=== PATIENT | male | born 1975 | race Caucasian/White ===

== ENCOUNTER 2019-10-21 21:38 | Emergency (ER) | payer OTHER, SELFPAY ==
--- OUTSIDE RECORDS SUMMARY | 2019-10-21 21:42 | XMS REPORT ---
:1975 Author Organization [facility] Address [address] [place] [address] Dr. Winn [address] [place] [address] Care Team Providers Name Role Phone Unavailable Unavailable Unavailable Problems This patient has no known problems. Allergies, Adverse Reactions, Alerts This patient has no known allergies or adverse reactions. Medications This patient has no known medications.
--- OUTSIDE RECORDS SUMMARY | 2019-10-21 21:42 | XMS REPORT | Summary of Care ---
:1975 Author Organization [facility] Address [address] [place] [address] Care Team Providers Name Role Phone Ge Murillo Primary Care Provider Reason for Referral MRI/CAT Scan (STAT) Status Reason Specialty Diagnoses / Referred By Referred To Procedures Contact Contact New Request Diagnostic Diagnoses Right groin pain Jessica Gomes Radiology Procedures CT ABDOMEN PELVIS W CONTRAST L, EDITORIAL PROJECT MANAGER [address] [place] [address] Radiology Services (JR) Status Reason Specialty Diagnoses / Referred By Referred To Procedures Contact Contact New Request Diagnostic Diagnoses Right groin pain Jessica Gomes Radiology Procedures US SCROTUM AND CONTENTS L, EDITORIAL PROJECT MANAGER [address] [place] [address] Reason for Visit Reason Comments Penis/Scrotum Problem Auth/Cert Status Reason Specialty Diagnoses / Referred By Referred To Procedures Contact Contact [facility] [address] [place] [address] [place] [address] Encounter Details Date Type Department Care Team Description 09/18/2019 Emergency ADC-Emergency Jessica Gomes, Right groin pain Department EDITORIAL PROJECT MANAGER (Primary Dx) [address] [place] [address] [place] [address] [place] [address] [place] [address] [phone] Allergies No Known Allergiesdocumented as of this encounter (statuses as of 09/18/2019) Medications Medication Sig Dispensed Refills Start Date End Date Status sulfamethoxazole-trimet Take 1 Tab by 20 Tab 0 05/12/2015 Active hoprim (BACTRIM DS) mouth every 12 800-160 mg tablet (twelve) hours. documented as of this encounter (statuses as of 09/18/2019) Active Problems No known active problemsdocumented as of this encounter (statuses as of 2019) Social History Tobacco Use Types Packs/Day Years Used Date Never Assessed Sex Assigned at Date Recorded Not on file Job Start Date Occupation Industry Not on file Not on file Not on file Travel History Travel Start Travel End No recent travel history available. documented as of this encounter Last Filed Vital Signs Vital Sign Reading Time Taken Comments Blood Pressure 141/90 09/18/2019 7:10 PM BELT TENDER Pulse 98 09/18/2019 7:10 PM BELT TENDER Temperature 37 C (98.6 F) 09/18/2019 3:14 PM BELT TENDER Respiratory Rate 18 09/18/2019 7:10 PM BELT TENDER Oxygen Saturation 96% 09/18/2019 7:10 PM BELT TENDER Inhaled Oxygen Concentration - - Weight 111.1 kg (245 lb) 09/18/2019 3:14 PM BELT TENDER Height 193 cm (6' 4") 09/18/2019 3:14 PM BELT TENDER Body Mass Index 29.82 09/18/2019 3:14 PM BELT TENDER documented in this encounter Discharge Instructions Jessica Garcia APN - 09/18/2019DIAGNOSIS 1. Right groin pain NO LIFE-THREATENING FINDINGS ON TODAY'S EXAM. PROCEDURES IN THE ER TODAY: Physical exam, laboratory and imaging studies MEDICATIONS ADMINISTERED IN THE ER TODAY: none YOUR PRESCRIPTIONS AND [id number] MEDICATION RECOMMENDATIONS: none SPECIAL CARE INSTRUCTIONS: Return for any new, persistent or worsening symptoms, otherwise follow up with your primary care provider within three days. FOLLOW-UP RECOMMENDATIONS: RECOMMEND FOLLOW-UP WITH A PRIMARY CARE PROVIDER OR SPECIALIST IN 2-5 DAYS, ESPECIALLY IF NO IMPROVEMENT IN SYMPTOMS. TO FOLLOW-UP WITHIN THE [facility], TRY THESE OPTIONS (CLINIC APPOINTMENTS AVAILABLE ON [id number] BASIS): 1. SCHEDULE AN APPOINTMENT ONLINE AT WWW[facility] 2. OR CALL THE [facility] ACCESS CENTER AT OR 3. OR CALL YOUR [facility] PHYSICIAN'S OFFICE DIRECTLY IF YOU ARE ALREADY AN ESTABLISHED [facility] PATIENT. OR, YOU MAY FOLLOW-UP WITH A PROVIDER OF YOUR CHOICE, SUCH : 1. A PHYSICIAN OF YOUR CHOICE 2. [facility], . LOCATIONS IN [facility] 3. [facility], [address] [place], [place]; RETURN TO ER FOR WORSENING OF SYMPTOMS. Care of condition, home medications, and to seek immediate attention for any worsening or new symptoms such as chest pain, shortness of breath, weakness on one side of the body, generalized weakness, fever, increase in pain, nausea, vomiting, unusual bleeding, confusion, decreased level of consciousness or for any symptoms that you find concerning or worrisome. documented in this encounter Plan of Treatment Health Maintenance Due Date Last Done Comments DTaP,Tdap,and Td Vaccines (1 - 1984 Tdap) INFLUENZA VACCINE (#1) 2019 PNEUMOCOCCAL 0-64 YEARS COMBINED Aged Out No longer eligible based on SERIES patient's age to complete this topic documented as of this encounter Procedures Procedure Name Priority Date/Time Associated Comments Diagnosis CT ABDOMEN PELVIS W STAT 09/18/2019 6:04 Right groin pain Results for this CONTRAST PM BELT TENDER procedure are in the results section. US SCROTUM AND JR 09/18/2019 5:22 Right groin pain Results for this CONTENTS PM BELT TENDER procedure are in the results section. URINALYSIS STAT 09/18/2019 4:08 Right groin pain Results for this PM BELT TENDER procedure are in the results section. CBC WITH DIFFERENTIAL STAT 09/18/2019 4:07 Right groin pain Results for this PM BELT TENDER procedure are in the results section. CBC WITH DIFFERENTIAL Routine 09/18/2019 4:07 Right groin pain Results for this PM BELT TENDER procedure are in the results section. BASIC METABOLIC PANEL STAT 09/18/2019 4:07 Right groin pain Results for this (NA, K, CL, CO2, PM BELT TENDER procedure are in GLUCOSE, BUN, the results CREATININE, CA) section. NOTICE OF PRIVACY Routine 09/18/2019 3:08 PRACTICES PM BELT TENDER documented in this encounter Results CT ABDOMEN PELVIS W CONTRAST (09/18/2019 6:04 PM BELT TENDER) Specimen Impressions Performed At PACS/VR/DOSE No acute process identified in the abdomen or pelvis. Left inguinal hernia containing only fat at the time of the exam. RL: 460 AFC: [id number] Narrative Performed At Indication: Acute abdominal pain PACS/VR/DOSE COMPARISON: None TECHNIQUE: Axial images of the abdomen and pelvis are performed following administration of intravenous contrast material. Images were reformatted in the coronal and sagittal plane. CT scan was performed according to ALARA (as low as reasonably achievable) policy. FINDINGS: The lung bases are clear. The liver, gallbladder, spleen, adrenal glands and pancreas are within normal limits. The left kidney is unremarkable. There is a cortical cyst in the right kidney measuring 3.6 cm. No abdominal aortic aneurysm or dissection is appreciated. There is no free fluid in the pelvis. There is a left inguinal hernia containing only fat at the time of the exam. The patient is status post ventral hernia repair. There is no bowel obstruction, widespread diverticulosis or acute diverticulitis. The appendix is not separately identified. Bone windows through the abdomen and pelvis demonstrate no osseous destructive lesion. Procedure Note [facility], Radiant Results Inft User - 09/18/2019 6:16 PM BELT TENDER Indication: Acute abdominal pain COMPARISON: None TECHNIQUE: Axial images of the abdomen and pelvis are performed following administration of intravenous contrast material. Images were reformatted in the coronal and sagittal plane. CT scan was performed according to ALARA (as low as reasonably achievable) policy. FINDINGS: The lung bases are clear. The liver, gallbladder, spleen, adrenal glands and pancreas are within normal limits. The left kidney is unremarkable. There is a cortical cyst in the right kidney measuring 3.6 cm. No abdominal aortic aneurysm or dissection is appreciated. There is no free fluid in the pelvis. There is a left inguinal hernia containing only fat at the time of the exam. The patient is status post ventral hernia repair. There is no bowel obstruction, widespread diverticulosis or acute diverticulitis. The appendix is not separately identified. Bone windows through the abdomen and pelvis demonstrate no osseous destructive lesion. IMPRESSION No acute process identified in the abdomen or pelvis. Left inguinal hernia containing only fat at the time of the exam. RL: 460 AFC: [id number] Performing Organization Address [facility] Phone Number [facility]/VR/DOSE US SCROTUM AND CONTENTS (09/18/2019 5:22 PM BELT TENDER) Specimen Impressions Performed At [facility]/VR/Copiun Normal scrotal ultrasound. RL: 460 AFC: [id number] Narrative Performed At Ordering physician: JESSICA GOMES [facility]/VR/DOSE INDICATION: Right-sided groin pain COMPARISON: None FINDINGS: Grayscale and Doppler images of the scrotum. The right testis measures 4.4 x 1.7 x 3.6 cm and the left testis measures 2.8 x 2.5 x 1.9 cm. There is normal color flow in the testes bilaterally, with normal vascular waveforms. No asymmetric enlargement or hyperemia of either epididymis is seen to suggest epididymitis. Procedure Note [facility], Radiant Results Inft User - 09/18/2019 5:35 PM BELT TENDER Ordering physician: JESSICA GOMES INDICATION: Right-sided groin pain COMPARISON: None FINDINGS: Grayscale and Doppler images of the scrotum. The right testis measures 4.4 x 1.7 x 3.6 cm and the left testis measures 2.8 x 2.5 x 1.9 cm. There is normal color flow in the testes bilaterally, with normal vascular waveforms. No asymmetric enlargement or hyperemia of either epididymis is seen to suggest epididymitis. IMPRESSION Normal scrotal ultrasound. RL: 460 AFC: [id number] Performing Organization Address [facility] Phone Number [facility]/VR/DOSE URINALYSIS (09/18/2019 4:08 PM BELT TENDER) APPEARANCE Clear Clear [facility] COLOR Yellow Yellow [facility] PH 7.0 4.8 - 8.0 [facility] SP GRAVITY 1.026 1.003 - 1.030 [facility] GLU U QUAL Normal Normal [facility] BLOOD Negative Negative [facility] KETONES 5 mg/dL (A) Negative [facility] PROTEIN Negative Negative [facility] UROBILIN 4.0 mg/dL (A) Normal [facility] BILIRUBIN Negative Negative [facility] NITRITE Negative Negative [facility] LEUK JARRET Negative Negative [facility] RBC/HPF 3 0 - 3 HPF [facility] WBC/HPF 1 0 - 5 HPF [facility] BACTERIA Negative Negative [facility] MUCOUS Moderate (A) Negative LPF [facility] HYAL CAST 3 (H) <=2 LPF [facility] Specimen Urine - URINE, CLEAN CATCH Performing Organization Address City/State/Zipcode Phone Number [facility] CLIA: [id number], [address] [place] [address] CBC WITH DIFFERENTIAL (09/18/2019 4:07 PM BELT TENDER) WBC 7.85 4.20 - 10.70 [facility] 10*3/L [facility] RBC 4.62 4.26 - 5.52 [facility] 10*6/L [facility] HGB 14.5 12.2 - 16.4 g/dL [facility] HCT 42.3 38.4 - 49.3 % [facility] MCV 91.6 81.7 - 95.6 fL [facility] MCH 31.4 26.1 - 32.7 pg [facility] MCHC 34.3 31.2 - 35.0 g/dL [facility] RDW-SD 43.8 38.5 - 51.6 fL [facility] RDW-CV 13.1 12.1 - 15.4 % [facility] PLT 276 150 - 328 [facility] 10*3/L [facility] MPV 10.4 9.8 - 13.0 fL [facility] NRBC/100 WBC 0.0 0.0 - 10.0 /100 [facility] WBCs [facility] NRBC x10^3 <0.01 10*3/L [facility] GRAN MAT (NEUT) % 51.9 % [facility] IMM GRAN % 0.40 % [facility] LYMPH % 36.7 % [facility] MONO % 8.2 % [facility] EOS % 1.9 % [facility] BASO % 0.9 % [facility] GRAN MAT x10^3(ANC) 4.08 1.99 - 6.95 [facility] 10*3/uL HOSPITAL LABORATORY IMM GRAN x10^3 0.03 0.00 - 0.06 [facility] 10*3/uL HOSPITAL LABORATORY LYMPH x10^3 2.88 1.09 - 3.23 [facility] 10*3/uL HOSPITAL LABORATORY MONO x10^3 0.64 0.36 - 1.02 [facility] 10*3/uL HOSPITAL LABORATORY EOS x10^3 0.15 0.06 - 0.53 [facility] 10*3/uL [facility] BASO x10^3 0.07 0.01 - 0.[address]uL [facility] Specimen Blood - VENOUS Performing Organization Address City/State/Zipcode Phone Number [facility] CLIA: [id number], [address] [place] [address] BASIC METABOLIC PANEL (NA, K, CL, CO2, GLUCOSE, BUN, CREATININE, CA) (2019 4:07 PM BELT TENDER) NA 143 135 - 145 mmol/L [facility] K 4.1 3.5 - 5.0 mmol/L [facility] CL 106 98 - 108 mmol/L [facility] CO2 TOTAL 27 23 - 31 mmol/L [facility] AGAP 10 2 - 16 [facility] BUN 13 7 - 23 mg/dL [facility] GLUCOSE 100 70 - 110 mg/dL [facility] CREATININE 1.03 0.60 - 1.25 [facility] mg/dL [facility] CALCIUM 9.4 8.6 - 10.6 mg/dL [facility] eGFR Calculation 77.7 mL/min/1.73m2 [facility] (Non-) [facility] eGFR Calculation 94.2 mL/min/1.73m2 [facility] () [facility] Specimen Blood - VENOUS Narrative Performed At Association of Glomerular Filtration Rate (GFR) [facility] and Staging of Kidney Disease* + + +- + | GFR (mL/min/1.73 m2) | With Kidney Damage | Without Kidney Damage + + +- + | >90 | Stage one | Normal + + +- + | 60-89 | Stage two | Decreased GFR + + +- + | 30-59 | Stage three | Stage three + + +- + | 15-29 | Stage four | Stage four + + +- + | <15 (or dialysis) | Stage five | Stage five + + +- + *Each stage assumes the associated GFR level has been in effect for at least three months. Stages 1 to 5, with or without kidney disease, indicate chronic kidney disease. Notes: Determination of stages one and two (with eGFR >59mL/min/1.73 m2) requires estimation of kidney damage for at least three months as defined by structural or functional abnormalities of the kidney, manifested by either: Pathological abnormalities or Markers of kidney damage (including abnormalities in the composition of the blood or urine or abnormalities in imaging tests). Performing Organization Address City/State/Zipcode Phone Number [facility] CLIA: [id number], [address] [place] [address] documented in this encounter Visit Diagnoses Diagnosis Right groin pain - Primary Abdominal pain, right lower quadrant documented in this encounter Administered Medications Medication Order MAR Action Action Date Dose Rate Site iohexol (OMNIPAQUE 350 BULK-100 Given 09/18/2019 6:00 PM BELT TENDER 120 mL mL) injection 120 mL 120 mL, Intravenous, ONCE, 1 dose, 09/18/19 at 1815, Routine documented in this encounter (Work) [id number] documented as of this encounter
--- OUTSIDE RECORDS SUMMARY | 2019-10-21 21:42 | XMS REPORT | Summary of Care ---
:1975 Author Organization [facility] - [facility] Address [address] [place] [address] Care Team Providers Name Role Phone Ge Murillo Primary Care Provider Encounter Details Date Type Department Care Team Description 09/17/2019 Orders Only [facility] Doctor Unassigned, No [address] [facility] Name [place] [id number] [address] [place] [phone] Allergies No Known Allergiesdocumented as of this encounter (statuses as of 09/22/2019) Medications Medication Sig Dispensed Refills Start Date End Date Status sulfamethoxazole-trimet Take 1 Tab by 20 Tab 0 05/12/2015 Active hoprim (BACTRIM DS) mouth every 12 800-160 mg tablet (twelve) hours. documented as of this encounter (statuses as of 09/22/2019) Active Problems No known active problemsdocumented as [...] of this encounter Last Filed Vital Signs Not on filedocumented in this encounter Plan of Treatment Health Maintenance Due Date Last Done Comments DTaP,Tdap,and Td Vaccines (1 - 1984 Tdap) INFLUENZA VACCINE (#1) 2019 PNEUMOCOCCAL 0-64 YEARS COMBINED Aged Out No longer eligible based on SERIES patient's age to complete this topic documented as of this encounter Procedures Procedure Name Priority Date/Time Associated Diagnosis Comments PHYSICIAN ORDERS Routine 09/17/2019 12:01 AM DRYWALL STRIPPER HELPER documented in this encounter Results Not on filedocumented in this encounter Insurance Payer Benefit Plan / Subscriber ID Effective Dates Phone Address Type Group DOMENICA CHITO UNSPONSORED [id number] 2017-Fred[address] [place] [address] [place] [address] [employer] AETNA O [id number] 2019-Pres O ent documented as of this encounter
--- OUTSIDE RECORDS SUMMARY | 2019-10-21 21:42 | XMS REPORT | Summary of Care ---
:1975 Author Organization [facility] - [facility] Address [address] [place] [address] Care Team Providers Name Role Phone Ge Murillo Primary Care Provider Encounter Details Date Type Department Care Team Description 09/18/2019 Orders Only [facility] Doctor Unassigned, No [address] [facility] [place] [address] [address] [place] [phone] Allergies No Known Allergiesdocumented as of this [...] Procedure Name Priority Date/Time Associated Diagnosis Comments CONSENT/REFUSAL FOR Routine 09/18/2019 3:08 PM GARMENT INSPECTOR DIAGNOSIS AND TREATMENT documented in this encounter Results Not on filedocumented in this encounter Insurance Payer Benefit Plan / Subscriber ID Effective Dates Phone Address Type Group DOMENICA CHITO UNSPONS[employer]ED [id number] 2017-[address] [place] [address] [place] [address] [employer] A[employer] O [id number] 2019- O ent documented as of this encounter
--- OUTSIDE RECORDS SUMMARY | 2019-10-21 21:43 | XMS REPORT | Summary of Care ---
:1975 Author Organization [facility] Address [address] [place] [address] Care Team Providers Name Role Phone Ge Murillo Primary Care Provider Reason for Visit Reason Comments LAB WORK Auth/Cert Status Reason Specialty Diagnoses / Procedures Referred By Contact Referred To Contact Phlebotomy Diagnoses rt groin pain Adc Pob Lab Draw Procedures CBC, NO DIFFERENTIAL/PLATELET-LC Professional Office Building [address] [place] [address] , [address] [place] [address] Encounter Details Date Type Department Care Team Description 09/17/2019 Vp Of Product Visit [facility] Eliel Corbett MD [address] [place] [address] Right groin pain Professional Office Pob, Adc Lab Main (Primary Dx) Building Phlebotomy Lab Professional Office Building [address] [place] [address] , [address] [place] [address] Allergies No Known Allergiesdocumented as of this encounter (statuses as of 09/30/2019) Medications Medication Sig Dispensed Refills Start Date End Date Status sulfamethoxazole-trimet Take 1 Tab by 20 Tab 0 05/12/2015 Active hoprim (BACTRIM DS) mouth every 12 800-160 mg tablet (twelve) hours. documented as of this encounter (statuses as of 09/30/2019) Active Problems No known active problemsdocumented as [...] Procedure Name Priority Date/Time Associated Comments Diagnosis URINALYSIS Routine 09/17/2019 12:41 Right groin pain Results for this PM MASTER BAKER procedure are in the results section. CBC WITH DIFFERENTIAL Routine 09/17/2019 11:37 Right groin pain Results for this AM MASTER BAKER procedure are in the results section. CBC WITH DIFFERENTIAL Routine 09/17/2019 11:37 Right groin pain Results for this AM MA[facility] BAKER procedure are in the results section. COMP. METABOLIC PANEL Routine 09/17/2019 11:37 Right groin pain Results for this (74594) AM MASTER BAKER procedure are in the results section. documented in this encounter Results URINALYSIS (09/17/2019 12:41 PM MASTER BAKER) APPEARANCE Clear Clear [facility] COLOR Yellow Yellow [facility] PH 5.0 4.8 - 8.0 [facility] SP GRAVITY 1.019 1.003 - 1.030 [facility] GLU U QUAL Normal Normal [facility] BLOOD Negative Negative [facility] KETONES Negative Negative [facility] PROTEIN Negative Negative [facility] UROBILIN Normal Normal [facility] BILIRUBIN Negative Negative [facility] NITRITE Negative Negative [facility] LEUK JARRET Negative Negative [facility] RBC/HPF 1 0 - 3 HPF [facility] WBC/HPF 1 0 - 5 HPF [facility] BACTERIA Negative Negative [facility] MUCOUS Slight (A) Negative LPF [facility] SQ EPITH 1 HPF [facility] Specimen Urine - URINE, CLEAN CATCH Performing Organization Address City/State/Zipcode Phone Number [facility] CLIA: [id number], [address] [place] [address] CBC WITH DIFFERENTIAL (09/17/2019 11:37 AM MASTER BAKER) WBC 6.38 4.20 - 10.70 [facility] 10*3/L H[facility] RBC 4.81 4.26 - 5.52 [facility] 10*6/L [facility] HGB 14.8 12.2 - 16.4 g/dL [facility] HCT 44.2 38.4 - 49.3 % [facility] MCV 91.9 81.7 - 95.6 fL [facility] MCH 30.8 26.1 - 32.7 pg [facility] MCHC 33.5 31.2 - 35.0 g/dL [facility] RDW-SD 43.5 38.5 - 51.6 fL [facility] RDW-CV 12.9 12.1 - 15.4 % [facility] PLT 276 150 - 328 [facility] 10*3/L [facility] MPV 10.2 9.8 - 13.0 fL [facility] NRBC/100 WBC 0.0 0.0 - 10.0 /100 [facility] WBCs [facility] NRBC x10^3 <0.01 10*3/L [facility] GRAN MAT (NEUT) % 51.6 % [facility] IMM GRAN % 0.30 % [facility] LYMPH % 37.6 % [facility] MONO % 8.3 % [facility] EOS % 1.3 % [facility] BASO % 0.9 % [facility] GRAN MAT x10^3(ANC) 3.29 1.99 - 6.95 [facility] 10*3/uL [facility]OSPITAL [facility] IMM GRAN x10^3 <0.03 0.00 - 0.06 [facility] 10*3/uL [facility] LYMPH x10^3 2.40 1.09 - 3.23 [facility] 10*3/uL [facility] MONO x10^3 0.53 0.36 - 1.02 [facility] 10*3/uL [facility] EOS x10^3 0.08 0.06 - 0.53 [facility] 10*3/uL [facility] BASO x10^3 0.06 0.01 - 0.09 [facility] 10*3/uL [facility] Specimen Blood Performing Organization Address City/State/Zipcode Phone Number [facility] CLIA: [id number], [address] [place] [address] COMP. METABOLIC PANEL ([id number]) (09/17/2019 11:37 AM MASTER BAKER) NA 141 135 - 145 mmol/L [facility] K 4.3 3.5 - 5.0 mmol/L [facility] CL 105 98 - 108 mmol/L [facility] CO2 TOTAL 25 23 - 31 mmol/L [facility] AGAP 11 2 - 16 [facility] BUN 8 7 - 23 mg/dL [facility] GLUCOSE 100 70 - 110 mg/dL [facility] CREATININE 0.88 0.60 - 1.25 [facility] mg/dL [facility] TOTAL BILI 0.3 0.1 - 1.1 mg/dL [facility] CALCIUM 9.6 8.6 - 10.6 mg/dL [facility] T PROTEIN 7.4 6.3 - 8.2 g/dL [facility] ALBUMIN 4.8 3.5 - 5.0 g/dL [facility] ALK PHOS 75 34 - 122 U/L [facility] ALTv 28 5 - 50 U/L [facility] AST(SGOT) 30 13 - 40 U/L [facility] eGFR Calculation 93.2 mL/min/1.73m2 [facility] (Non-) [facility] eGFR Calculation 113.0 mL/min/1.73m2 [facility] () [facility] Specimen Blood Narrative Performed At Association of Glomerular Filtration Rate (GFR) [facility] and Staging of Kidney Disease* [...] tests). Performing Organization Address City/State/Zipcode Phone Number [facility] CLIA: [id number], [address] [place] [address] [facility] [address] documented in this encounter Visit Diagnoses Diagnosis Right groin pain - Primary Abdominal pain, right lower quadrant documented in this encounter (Work) [id number] documented as of this encounter"
[2019-10-21] MEDS ORDERED: LIDOCAINE 1% MPF 5 ML VIAL ONE (22:45)
[2019-10-21] MEDS ORDERED: HYDROCODONE/APAP 10/325 TAB ONE (22:45)
[2019-10-21] MEDS ORDERED: PROMETHAZINE 25 MG TABLET ONE (22:45)
--- NOTE | 2019-10-21 23:45 | ER ---
Nurse's Notes [facility] Name: Robbie Cano Age: 44 yrs Sex: Male : 1975 Arrival Date: 10/21/2019 Time: 21:45 Bed 19 Private MD: Diagnosis: Hemorrhoids and perianal venous thrombosis Presentation: 10/20 21:56 Chief complaint: Patient states: He has a red swollen area on his butt, his looked aj1 it up on google and it looked like perirectal abscess. Denies fever. Coronavirus screen: The patient has NOT traveled to a country currently being monitored by the CDC within the last 14 days. Ebola Screen: Patient denies travel to an Ebola-affected area in the 21 days before illness onset. Initial Sepsis Screen: Does the patient meet any 2 criteria? No. Patient's initial sepsis screen is negative. Does the patient have a suspected source of infection? Yes: Skin breakdown/wound. Risk Assessment: Do you want to hurt yourself or someone else? Patient reports no desire to harm self or others. 21:56 Method Of Arrival: Ambulatory aj 21:56 Acuity: RAMÍREZ 4 aj 10/21 00:10 Onset of symptoms is unknown. rv Triage Assessment: 10/20 21:59 General: Appears in no apparent distress. uncomfortable, Behavior is calm, cooperative, aj1 appropriate for age. Pain: Complains of pain in buttocks. Neuro: Level of Consciousness is awake, alert, obeys commands. Cardiovascular: Patient's skin is warm and dry. Respiratory: Airway is patent Respiratory effort is even, unlabored, Respiratory pattern is regular, symmetrical. Historical: - Allergies: 21:59 NKDA; aj1 - Home Meds: 21:59 None [Active]; aj1 - PMHx: 21:59 heat stroke; aj1 - PSHx: 21:59 Hernia repair; Vasectomy; aj1 - Immunization history:: Flu vaccine is not up to date. - Social history:: Smoking status: Patient/guardian denies using tobacco. Screenin:00 Abuse screen: Denies threats or abuse. Denies injuries from another. rv 23:00 Nutritional screening: No deficits noted. Tuberculosis screening: No symptoms or risk rv factors identified. Fall Risk None identified. Assessment: 23:00 General: Appears in no apparent distress. Behavior is calm, cooperative. rv 23:00 Pain: Complains of pain in rectal. Neuro: Level of Consciousness is awake, alert, obeys rv commands, Oriented to person, place, time, situation. Cardiovascular: Patient's skin is warm and dry. Respiratory: Airway is patent. GI: Reports rectal pain. Vital Signs: 21:59 BP 147 / 96; Pulse 89; Resp 18; Temp 98.5; Pulse Ox 96% on R/A; Weight 111.58 kg; aj1 Height 6 ft. 4 in. (193.04 cm); 23:00 BP 138 / 89; Pulse 86; Resp 15; Pulse Ox 99% on R/A; Pain 2/10; rv 21:59 Body Mass Index 29.94 (111.58 kg, 193.04 cm) aj1 ED Course: 21:45 Patient arrived in ED. jg7 21:58 Triage completed. aj1 21:59 Arm band placed on Patient placed in an exam room. aj1 22:07 Erick Edouard RN is Primary Nurse. rv 22:31 Gita Cox FNP-C is PHCP. snw 22:31 Cristhian Penn MD is Attending Physician. snw 23:00 Patient has correct armband on for positive identification. Pulse ox on. NIBP on. rv 10/21 00:10 No provider procedures requiring assistance completed. Patient did not have IV access rv during this emergency room visit. Administered Medications: 10/20 22:45 Drug: Isabella 10 mg-325 mg 1 tabs {Note: rass 0.} Route: PO; rv 10/21 00:11 Follow up: Response: No adverse reaction; Marked relief of symptoms; RASS: Alert and rv Calm (0) 03 22:45 Drug: Phenergan 25 mg Route: PO; rv 10/21 00:11 Follow up: Response: No adverse reaction rv 00:11 Drug: Lidocaine (1 %) 5 mg {Note: used by NP. DAILY} Route: Infiltration; rv Outcome: 10/20 23:44 Discharge ordered by . snw 10/21 00:10 Discharged to home ambulatory, with family. rv Condition: good Discharge instructions given to patient, family, Instructed on discharge instructions, follow up and referral plans. medication usage, Demonstrated understanding of instructions, follow-up care, medications, Prescriptions given X 2. 00:12 Patient left the ED. rv Signatures: Rachna Friedman RN RN aj1 Gita oCx, LEAD CUSTODIAN-C LEAD CUSTODIAN-Csnw Erick Edouard, RN RN rv Ruth Ann Burnett jg7
--- NOTE | 2019-10-21 23:45 | EDPHYS ---
Physician Documentation [facility] Name: Robbie Cano Age: 44 yrs Sex: Male : 1975 Arrival Date: 10/21/2019 Time: 21:45 Bed 19 Private MD: ED Physician Cristhian Penn HPI: 10/20 22:42 This 44 yrs old Male presents to ER via Ambulatory with complaints of Abscess.snw 22:42 The patient presents to the emergency department with pain in the rectal area, that is snw moderate. Onset: The symptoms/episode began/occurred suddenly, today. Context: the patient has no known special context relating to the rectal area complaint(s). Modifying factors: The symptoms are alleviated by nothing, The symptoms are aggravated by cough. Associate signs and symptoms: The patient has no apparent associated signs or symptoms. The patient has not experienced similar symptoms in the past. The patient has not recently seen a physician. noted hemorrhoid. Historical: - Allergies: 21:59 NKDA; aj1 - Home Meds: 21:59 None [Active]; aj1 - PMHx: 21:59 heat stroke; aj1 - PSHx: 21:59 Hernia repair; Vasectomy; aj1 - Immunization history:: Flu vaccine is not up to date. - Social history:: Smoking status: Patient/guardian denies using tobacco. ROS: 22:42 Constitutional: Negative for fever, chills, and weight loss, Eyes: Negative for injury, snw pain, redness, and discharge, ENT: Negative for injury, pain, and discharge, Neck: Negative for injury, pain, and swelling, Cardiovascular: Negative for chest pain, palpitations, and edema, Respiratory: Negative for shortness of breath, cough, wheezing, and pleuritic chest pain, Back: Negative for injury and pain, : Negative for injury, bleeding, discharge, and swelling, MS/Extremity: Negative for injury and deformity, Skin: Negative for injury, rash, and discoloration, Neuro: Negative for headache, weakness, numbness, tingling, and seizure. 22:42 Abdomen/GI: Positive for rectal pain. Exam: 22:40 Constitutional: This is a well developed, well nourished patient who is awake, alert, snw and in no acute distress. Head/Face: Normocephalic, atraumatic. Eyes: Pupils equal round and reactive to light, extra-ocular motions intact. Lids and lashes normal. Conjunctiva and sclera are non-icteric and not injected. Cornea within normal limits. Periorbital areas with no swelling, redness, or edema. ENT: Nares patent. No nasal discharge, no septal abnormalities noted. Tympanic membranes are normal and external auditory canals are clear. Oropharynx with no redness, swelling, or masses, exudates, or evidence of obstruction, uvula midline. Mucous membranes moist. Neck: Trachea midline, no thyromegaly or masses palpated, and no cervical lymphadenopathy. Supple, full range of motion without nuchal rigidity, or vertebral point tenderness. No Meningismus. Chest/axilla: Normal chest wall appearance and motion. Nontender with no deformity. No lesions are appreciated. Cardiovascular: Regular rate and rhythm with a normal S1 and S2. No gallops, murmurs, or rubs. Normal PMI, no JVD. No pulse deficits. Respiratory: Lungs have equal breath sounds bilaterally, clear to auscultation and percussion. No rales, rhonchi or wheezes noted. No increased work of breathing, no retractions or nasal flaring. Abdomen/GI: Soft, non-tender, with normal bowel sounds. No distension or tympany. No guarding or rebound. No evidence of tenderness throughout. right anal fold with hemorrhoid with small amount of dark blood Back: No spinal tenderness. No costovertebral tenderness. Full range of motion. Skin: Warm, dry with normal turgor. Normal color with no rashes, no lesions, and no evidence of cellulitis. MS/ Extremity: Pulses equal, no cyanosis. Neurovascular intact. Full, normal range of motion. Neuro: Awake and alert, GCS 15, oriented to person, place, time, and situation. Cranial nerves II-XII grossly intact. Motor strength 5/5 in all extremities. Sensory grossly intact. Cerebellar exam normal. Normal gait. Vital Signs: 21:59 BP 147 / 96; Pulse 89; Resp 18; Temp 98.5; Pulse Ox 96% on R/A; Weight 111.58 kg; aj1 Height 6 ft. 4 in. (193.04 cm); 23:00 BP 138 / 89; Pulse 86; Resp 15; Pulse Ox 99% on R/A; Pain 2/10; rv 21:59 Body Mass Index 29.94 (111.58 kg, 193.04 cm) aj1 Procedures: 23:47 I \T\ D: Incision and drainage was performed for an abscess of the right perianal area. snw Prepped with hibiclens. Anesthetized with 4 ml's 1% Lidocaine. Incised with needle. Drained moderate amount serosanguinous fluid. Dressing: sterile 4x4 gauze, the patient tolerated the procedure well. MDM: 22:31 Patient medically screened. snw 23:47 Data reviewed: vital signs, nurses notes. Data interpreted: Pulse oximetry: on room air snw is 96 %. Interpretation: normal. Counseling: I had a detailed discussion with the patient and/or guardian regarding: the historical points, exam findings, and any diagnostic results supporting the discharge/admit diagnosis, the presence of at least one elevated blood pressure reading (>120/80) during this emergency department visit, the need for outpatient follow up, to return to the emergency department if symptoms worsen or persist or if there are any questions or concerns that arise at home. Response to treatment: the patient's symptoms have markedly improved after treatment. Special discussion: I have referred the patient to see his PCP for further evaluation of high blood pressure. Based on the history and exam findings, there is no indication for further emergent testing or inpatient evaluation. I discussed with the patient/guardian the need to see the primary care provider for further evaluation of the symptoms. Administered Medications: 22:45 Drug: [place] 10 mg-325 mg 1 tabs {Note: rass 0.} Route: PO; rv 10/21 00:11 Follow up: Response: No adverse reaction; Marked relief of symptoms; RASS: Alert and rv Calm (0) 10/20 22:45 Drug: Phenergan 25 mg Route: PO; rv 10/21 00:11 Follow up: Response: No adverse reaction rv 00:11 Drug: Lidocaine (1 %) 5 mg {Note: used by TY AMBROSIO.} Route: Infiltration; rv Disposition: 07:52 Co-signature as Attending Physician, Cristhian Penn MD I agree with the assessment and harriet plan of care. Disposition: 10/21/19 23:44 Discharged to Home. Impression: Hemorrhoids and perianal venous thrombosis. - Condition is Stable. - Discharge Instructions: Hemorrhoids, How to Take a Sitz Bath, Incision and Drainage, Care After. - Prescriptions for Proctofoam HC 1- 1 % Rectal foam - apply 1 applicatorful by TOPICAL route 3 times per day; 1 Container. Augmentin 875- 125 mg Oral Tablet - take 1 tablet by ORAL route every 12 hours for 10 days; 20 tablet. - Medication Reconciliation Form, Thank You Letter, Antibiotic Education, Prescription Opioid Use form. - Follow up: Emergency Department; When: As needed; Reason: Worsening of condition. Follow up: Private Physician; When: 2 - 3 days; Reason: Recheck today's complaints, Continuance of care, Re-evaluation by your physician. Signatures: Rachna Friedman RN RN ajCristhian Mariscal MD MD cha Therrien, Shelly, MIXER SLAGMAN-C MIXER SLAGMAN-Csnw Erick Edouard, RN RN rv Corrections: (The following items were deleted from the chart) 00:12 10/20 23:44 10/21/2019 23:44 Discharged to Home. Impression: Hemorrhoids and perianal rv venous thrombosis. Condition is Stable. Forms are Medication Reconciliation Form, Thank You Letter, Antibiotic Education, Prescription Opioid Use. Follow up: Emergency Department; When: As needed; Reason: Worsening of condition. Follow up: Private Physician; When: 2 - 3 days; Reason: Recheck today's complaints, Continuance of care, Re-evaluation by your physician. snw
[2019-10-22 00:25] VITALS: TEMP 98.5
[2019-10-22 00:27] VITALS: BP 138/89; O2SAT 99
== END 2019-10-22 00:12 | disposition home or self-care (01) ==
LOC: ER 21:38
PROC: 0D9QXZZ Drainage of Anus, External Approach (ICD-10-PCS; principal; 2019-10-22)
DX: K64.5 Perianal venous thrombosis (principal); K64.9 Unspecified hemorrhoids
CPT/HCPCS: 99283; 46050; Q0169

== ENCOUNTER 2020-06-09 15:38 | Emergency (ER) | payer OTHER ==
--- OUTSIDE RECORDS SUMMARY | 2020-06-09 15:40 | XMS REPORT | Continuity of Care Document ---
:1975 Author Organization [facility] t Address [address] [place] [address] [address]. [address]. [address] [place] [address] Care Team Providers Name Role Phone Morro Arthur APN Attending Clinician Doctor Unassigned, Name Attending Clinician Unavailable Lorena Moss Main Attending Clinician Unavailable Problems This patient has no known problems. Allergies, Adverse Reactions, Alerts This patient has no known allergies or adverse reactions. Medications This patient has no known medications. Procedures This patient has no known procedures. Encounters Start End Encounter Admission Attending Care Care Encounter Source Date/Time Date/Time Type Type Clinicians Facility Department ID 2019-09-18 2019-09-18 Emergency Jerson [facility] [id number] 15:10:48 19:29:00 Dre Portillo [id number] [place] [id number] [place] [id number] 2019-09-18 2019-09-18 Orders Doctor MARTY [id number] 00:00:00 00:00:00 Only Unassigned, MAURI [id number] [place] [facility] [id number] 2019-09-17 2019-09-17 Middle Card Tender Moon Moss [facility] [id number] 11:23:09 11:38:09 Visit Lab Main [place] [id number] [place] [id number] [facility] [id number] [address] 2019-09-17 2019-09-17 Orders Doctor MARTY [id number] 00:00:00 00:00:00 Only Unassigned, MAURI [id number] [place] [facility] [id number] Results This patient has no known results.
[2020-06-09] MEDS ORDERED: LIDOCAINE 1% MPF 30 ML VIAL ONE (16:31)
[2020-06-09] MEDS ORDERED: LIDOCAINE 1% MPF 5 ML VIAL ONE (16:36)
--- NOTE | 2020-06-09 17:07 | EDPHYS ---
Physician Documentation [facility] Name: Robbie Cano Age: 45 yrs Sex: Male : 1975 Arrival Date: 06/09/2020 Time: 15:40 Bed 13 Private MD: ED Physician Yuan Paez HPI: 06/09 18:14 This 45 yrs old Male presents to ER via Ambulatory with complaints of Foreign snw Body - fish hook in chest. 18:14 The patient or guardian reports the patient has a suspected foreign body, chest. The snw reported likely foreign body is a fishhook. Onset: The symptoms/episode began/occurred suddenly, just prior to arrival. Treatment Prior to Arrival: none. The patient has experienced a previous episode. It is unknown whether or not the patient has recently seen a physician. omid rice. Historical: - Allergies: 15:54 NKDA; jd3 - PMHx: 15:54 heat stroke; jd3 - PSHx: 15:54 Hernia repair; Vasectomy; jd3 - Immunization history:: Adult Immunizations up to date, Last tetanus immunization: unknown. - Social history:: Smoking status: Patient denies any tobacco usage or history of. ROS: 18:13 Constitutional: Negative for fever, chills, and weight loss, Eyes: Negative for injury, snw pain, redness, and discharge, ENT: Negative for injury, pain, and discharge, Neck: Negative for injury, pain, and swelling, Cardiovascular: Negative for chest pain, palpitations, and edema, Respiratory: Negative for shortness of breath, cough, wheezing, and pleuritic chest pain, Abdomen/GI: Negative for abdominal pain, nausea, vomiting, diarrhea, and constipation, Back: Negative for injury and pain, : Negative for injury, bleeding, discharge, and swelling, MS/Extremity: Negative for injury and deformity, Neuro: Negative for headache, weakness, numbness, tingling, and seizure, Psych: Negative for depression, anxiety, suicide ideation, homicidal ideation, and hallucinations. 18:13 Skin: Positive for foreign body to chest - fish hook. Exam: 18:13 Constitutional: This is a well developed, well nourished patient who is awake, alert, snw and in no acute distress. Head/Face: Normocephalic, atraumatic. Eyes: Pupils equal round and reactive to light, extra-ocular motions intact. Lids and lashes normal. Conjunctiva and sclera are non-icteric and not injected. Cornea within normal limits. Periorbital areas with no swelling, redness, or edema. ENT: Nares patent. No nasal discharge, no septal abnormalities noted. Tympanic membranes are normal and external auditory canals are clear. Oropharynx with no redness, swelling, or masses, exudates, or evidence of obstruction, uvula midline. Mucous membranes moist. Neck: Trachea midline, no thyromegaly or masses palpated, and no cervical lymphadenopathy. Supple, full range of motion without nuchal rigidity, or vertebral point tenderness. No Meningismus. Chest/axilla: Normal chest wall appearance and motion. Nontender with no deformity. No lesions are appreciated. Cardiovascular: Regular rate and rhythm with a normal S1 and S2. No gallops, murmurs, or rubs. Normal PMI, no JVD. No pulse deficits. Respiratory: Lungs have equal breath sounds bilaterally, clear to auscultation and percussion. No rales, rhonchi or wheezes noted. No increased work of breathing, no retractions or nasal flaring. Abdomen/GI: Soft, non-tender, with normal bowel sounds. No distension or tympany. No guarding or rebound. No evidence of tenderness throughout. Back: No spinal tenderness. No costovertebral tenderness. Full range of motion. MS/ Extremity: Pulses equal, no cyanosis. Neurovascular intact. Full, normal range of motion. Neuro: Awake and alert, GCS 15, oriented to person, place, time, and situation. Cranial nerves II-XII grossly intact. Motor strength 5/5 in all extremities. Sensory grossly intact. Cerebellar exam normal. Normal gait. Psych: Awake, alert, with orientation to person, place and time. Behavior, mood, and affect are within normal limits. 18:13 Skin: Appearance: normal except for affected area, foreign body to left mid chest area. Vital Signs: 15:54 BP 132 / 80; Pulse 110; Resp 17 S; Temp 97.9(O); Pulse Ox 95% on R/A; Weight 111.58 kg jd3 (R); Height 6 ft. 4 in. (193.04 cm) (R); Pain 6/10; 17:18 BP 136 / 74; Pulse 92; Resp 17 S; Pulse Ox 100% on R/A; ca1 15:54 Body Mass Index 29.94 (111.58 kg, 193.04 cm) jd3 Procedures: 17:04 Foreign Body Removal: a fishhook, from the right mid chest wall, by needle, normal snw saline irrigation, The patient tolerated the removal well. 18:15 Foreign Body Removal: superior puncture wound appears "tattooed" with black coloration snw from t-shirt. MDM: 16:20 Patient medically screened. snw 17:09 Data reviewed: vital signs, nurses notes. Counseling: I had a detailed discussion with snw the patient and/or guardian regarding: the historical points, exam findings, and any diagnostic results supporting the discharge/admit diagnosis, the presence of at least one elevated blood pressure reading (>120/80) during this emergency department visit, the need for outpatient follow up, for definitive care, to return to the emergency department if symptoms worsen or persist or if there are any questions or concerns that arise at home. Special discussion: Based on the history and exam findings, there is no indication for further emergent testing or inpatient evaluation. I discussed with the patient/guardian the need to see the primary care provider for further evaluation of the symptoms. 06/09 17:09 Order name: Wound dressing; Complete Time: 17:10 snw Administered Medications: 17:10 Drug: Lidocaine (1 %) 1 vials Volume: 20 ml; Route: Infiltration; ca1 17:12 Drug: Doxycycline 100 mg Route: PO; ca1 17:31 Follow up: Response: No adverse reaction ca1 17:13 Drug: [place] 5 mg-325 mg 1 tabs {Note: rass 0.} Route: PO; ca1 17:31 Follow up: Response: No adverse reaction; Pain is decreased; RASS: Alert and Calm (0) ca1 17:15 Drug: Tetanus-Diphtheria Toxoid Adult 0.5 ml {Drill Rig Operator Helper: VetDC. Exp: ca1 10/22/2021. Lot #: [id number]. } Route: IM; Site: right deltoid; 17:31 Follow up: Response: No adverse reaction ca1 Disposition: 06/09/20 17:06 Discharged to Home. Impression: Puncture wound with foreign body of front wall of thorax without penetration into thoracic cavity. - Condition is Stable. - Discharge Instructions: Puncture Wound, VIS, Tetanus, Diphtheria (Td) - CDC, Foreign Body. - Prescriptions for Doxycycline Hyclate 100 mg Oral Tablet - take 1 tablet by ORAL route every 12 hours; 20 tablet. - Medication Reconciliation Form, Thank You Letter, Antibiotic Education, Prescription Opioid Use form. - Follow up: Emergency Department; When: As needed; Reason: Worsening of condition. Follow up: Private Physician; When: 5 - 6 days; Reason: Recheck today's complaints, Continuance of care, Re-evaluation by your physician. Addendum: 06/11/2020 14:34 Co-signature as Attending Physician, Yuan Paez MD I agree with the assessment and k dr plan of care. Signatures: Yuan Paez MD MD kdr Waters, Shelly, PILLO-C RECREATION THERAPY AIDES TEACHER-Jose Luis Melton, RN RN jd3 Carmita Pineda RN RN ca1 Corrections: (The following items were deleted from the chart) 06/09 17:31 17:06 06/09/2020 17:06 Discharged to Home. Impression: Puncture wound with foreign body ca1 of front wall of thorax without penetration into thoracic cavity. Condition is Stable. Forms are Medication Reconciliation Form, Thank You Letter, Antibiotic Education, Prescription Opioid Use. Follow up: Emergency Department; When: As needed; Reason: Worsening of condition. Follow up: Private Physician; When: 5 - 6 days; Reason: Recheck today's complaints, Continuance of care, Re-evaluation by your physician. snw
--- NOTE | 2020-06-09 17:07 | ER ---
Nurse's Notes [facility] Name: Robbie Cano Age: 45 yrs Sex: Male : 1975 Arrival Date: 06/09/2020 Time: 15:40 Bed 13 Private MD: Diagnosis: Puncture wound with foreign body of front wall of thorax without penetration into thoracic cavity Presentation: 06/09 15:52 Chief complaint: Patient states: "I got a hook stuck in my chest.". Coronavirus screen: jd3 At this time, the client does not indicate any symptoms associated with coronavirus-19. Ebola Screen: Patient negative for fever greater than or equal to 101.5 degrees Fahrenheit, and additional compatible Ebola Virus Disease symptoms. Initial Sepsis Screen: Does the patient meet any 2 criteria? No. Patient's initial sepsis screen is negative. Does the patient have a suspected source of infection? No. Patient's initial sepsis screen is negative. Risk Assessment: Do you want to hurt yourself or someone else? Patient reports no desire to harm self or others. Onset of symptoms was June 09, 2020. 15:52 Method Of Arrival: Ambulatory jd3 15:52 Acuity: RAMÍREZ 4 jd3 Historical: - Allergies: 15:54 NKDA; jd3 - PMHx: 15:54 heat stroke; jd3 - PSHx: 15:54 Hernia repair; Vasectomy; jd3 - Immunization history:: Adult Immunizations up to date, Last tetanus immunization: unknown. - Social history:: Smoking status: Patient denies any tobacco usage or history of. Screenin:15 Abuse screen: Denies threats or abuse. Denies injuries from another. Nutritional ca1 screening: No deficits noted. Tuberculosis screening: No symptoms or risk factors identified. Fall Risk None identified. Assessment: 16:15 General: Appears in no apparent distress. comfortable, Behavior is calm, cooperative, ca1 appropriate for age. Pain: Complains of pain in on the skin where the fishhook is. On the L side of chest Pain currently is 2 out of 10 on a pain scale. Neuro: Level of Consciousness is awake, alert, obeys commands, Oriented to person, place, time, situation. Derm: Skin is healthy with good turgor, Skin is pink, warm \\T\\ dry. Musculoskeletal: Circulation, motion, and sensation intact. Capillary refill < 3 seconds. 17:17 Reassessment: Patient appears in no apparent distress at this time. Patient is alert, ca1 oriented x 3, equal unlabored respirations, skin warm/dry/pink. Vital Signs: 15:54 BP 132 / 80; Pulse 110; Resp 17 S; Temp 97.9(O); Pulse Ox 95% on R/A; Weight 111.58 kg jd3 (R); Height 6 ft. 4 in. (193.04 cm) (R); Pain 6/10; 17:18 BP 136 / 74; Pulse 92; Resp 17 S; Pulse Ox 100% on R/A; ca1 15:54 Body Mass Index 29.94 (111.58 kg, 193.04 cm) jd3 ED Course: 15:40 Patient arrived in ED. as 15:46 Gita Wilkes FNP-C is PHCP. snw 15:46 Yuan Paez MD is Attending Physician. snw 15:53 Triage completed. jd3 15:56 Arm band placed on. jd3 16:15 Patient has correct armband on for positive identification. Call light in reach. Side ca1 rails up X 1. Pulse ox on. NIBP on. 16:15 Patient did not have IV access during this emergency room visit. ca1 16:19 Carmita Pineda, RN is Primary Nurse. ca1 17:18 No provider procedures requiring assistance completed. ca1 17:18 Wound care: to puncture located on left breast was cleaned with Betadine, Patient ca1 tolerated well. Administered Medications: 17:10 Drug: Lidocaine (1 %) 1 vials Volume: 20 ml; Route: Infiltration; ca1 17:12 Drug: Doxycycline 100 mg Route: PO; ca1 17:31 Follow up: Response: No adverse reaction ca1 17:13 Drug: [place] 5 mg-325 mg 1 tabs {Note: rass 0.} Route: PO; ca1 17:31 Follow up: Response: No adverse reaction; Pain is decreased; RASS: Alert and Calm (0) ca1 17:15 Drug: Tetanus-Diphtheria Toxoid Adult 0.5 ml {Creping Machine Operator: Ritot. Exp: ca1 10/22/2021. Lot #: [id number]. } Route: IM; Site: right deltoid; 17:31 Follow up: Response: No adverse reaction ca1 Outcome: 17:06 Discharge ordered by . snw 17:31 Discharged to home ambulatory, with significant other. ca1 17:31 Condition: stable 17:31 Discharge instructions given to patient, Instructed on discharge instructions, follow up and referral plans. medication usage, Demonstrated understanding of instructions, follow-up care, medications, Prescriptions given X 1. 17:31 Patient left the ED. ca1 Signatures: Gita Wilkes, METROLOGIST-C METROLOGIST-Csnw Jesusita Lehman Jonathon RN RN jd3 Carmita Pineda RN RN ca1 Corrections: (The following items were deleted from the chart) 16:22 14:15 General: Appears in no apparent distress. comfortable, Behavior is calm, ca1 cooperative, appropriate for age, ca1 16: 14:15 Pain: Complains of pain in on the skin where the fishhook is. On the L side of ca1 chest Pain currently is 2 out of 10 on a pain scale. ca1 16: 14:15 Neuro: Level of Consciousness is awake, alert, obeys commands, Oriented to ca1 person, place, time, situation, ca1 16: 14:15 Derm: Skin is healthy with good turgor, Skin is pink, warm \\T\\ dry. ca1 ca1 16:22 14:15 Musculoskeletal: Circulation, motion, and sensation intact. Capillary refill < 3 ca1 seconds, ca1
[2020-06-09] MEDS ORDERED: TETANUS & DIPHTHERIA TOX,ADULT 0.5 ML VIAL ONE (17:27)
[2020-06-09] MEDS ORDERED: HYDROCODONE/APAP 5/325 MG TAB ONE (17:27)
[2020-06-09] MEDS ORDERED: DOXYCYCLINE 100 MG CAP PO ONE (17:27)
[2020-06-09 17:45] VITALS: TEMP 97.9
[2020-06-09 17:47] VITALS: BP 136/74; O2SAT 100
== END 2020-06-09 17:31 | disposition home or self-care (01) ==
LOC: ER 15:38
DX: S21.149A Puncture wound with foreign body of unspecified front wall of thorax without penetration into thoracic cavity, initial encounter (principal); Z23 Encounter for immunization
CPT/HCPCS: 90471; 90714; 99284

== ENCOUNTER 2021-12-28 17:36 | Emergency (ER) | payer OTHER ==
--- OUTSIDE RECORDS SUMMARY | 2021-12-28 17:39 | XMS REPORT | Continuity of Care Document ---
:1975 Author Organization [facility] t Address [address] [place] [address] Care Team Providers Name Role Phone CRYS MORALES Primary Care Physician Unavailable Morro Gomes APN Attending Clinician Morro GOMES Attending Clinician Unavailable Doctor Unassigned, Name Attending Clinician Unavailable Pob, Lab Main Attending Clinician Unavailable Aric MARMOLEJO, P Attending Clinician Morro GOMES Admitting Clinician Unavailable Payers Payer Name Policy Type Policy Number Effective Date Expiration Date David VILLASENOR O [id number] 2019 00:00:00 2021 00:00 :00 Problems Condition Condition Condition Status Onset Resolution Last Treating Co mments Source Name Details Category Date Date Treatment Clinician Date No known No known Disease Unive rs active active ity of problems problems [facility] Allergies, Adverse Reactions, Alerts Allergy Allergy Status Severity Reaction(s) Onset Inactive Treating Comm ents Source Name Type Date Date Clinician NO KNOWN Drug Active Univers ALLERGIE Class ity of S [facility] Social History Social Habit Start Date Stop Date Quantity Comments Source Sex Assigned At Uni versity [facility] [place] [place] Smoking Status Start Date Stop Date Source Unknown if ever smoked Universit [facility] Medications Ordered Filled Start Stop Current Ordering Indication Dosage Frequency Signature Comments Components Source Medication Medication Date Date Medication? Clinician (SIG) Name Name iohexol 2020-0 2020- No 120mL 120 mL, Unive rs (OMNIPAQUE 2-09 02-09 Intravenou it y of 350 00:15: 00:00 s, ONCE, 1 [place] BULK-100 00 :00 dose, Sat Medica l mL) 09/18/19 at Branch injection 1815, 120 mL Routine sulfamethox 2014-08 Yes 1{tbl} Take 1 Tab Univers azole-trime 0-02 by mouth ity of thoprim 00:00: every 12 [place] (BACTRIM 00 (twelve) Medical DS) 800-160 hours. Branch mg tablet sulfamethox 2014-08 Yes 1{tbl} Take 1 Tab Univers azole-trime 0-02 by mouth ity of thoprim 00:00: every 12 [place] (BACTRIM 00 (twelve) Medical DS) 800-160 hours. Branch mg tablet sulfamethox 2014-08 Yes 1{tbl} Take 1 Tab Univers azole-trime 0-02 by mouth ity of thoprim 00:00: every 12 [place] (BACTRIM 00 (twelve) Medical DS) 800-160 hours. Branch mg tablet sulfamethox 2014-08 Yes 1{tbl} Take 1 Tab Univers azole-trime 0-02 by mouth ity of thoprim 00:00: every 12 [place] (BACTRIM 00 (twelve) Medical DS) 800-160 hours. Branch mg tablet Vital Signs Vital Name Observation Time Observation Value Comments Source Systolic blood 2019-09-19 01:10:00 141 mm[Hg] Univer [facility] Diastolic blood 2019-09-19 01:10:00 90 mm[Hg] [facility] Heart rate 2019-09-19 01:10:00 98 /min [facility] Respiratory rate 2019-09-19 01:10:00 18 /min [facility] Oxygen saturation in 2019-09-19 01:10:00 96 /min [facility] Arterial blood by [facility] Pulse oximetry [place] Body temperature 2019-09-18 21:14:00 37 Bri [facility] Body height 2019-09-18 21:14:00 193 cm [facility] Body weight 2019-09-18 21:14:00 111.131 kg [facility] BMI 2019-09-18 21:14:00 29.82 kg/m2 [facility] Systolic blood 2019-09-19 01:10:00 141 mm[Hg] Univer sity of pressure [facility] Diastolic blood 2019-09-19 01:10:00 90 mm[Hg] [facility] Heart rate 2019-09-19 01:10:00 98 /min [facility] Respiratory rate 2019-09-19 01:10:00 18 /min [facility] Oxygen saturation in 2019-09-19 01:10:00 96 /min [facility] Arterial blood by [facility] Pulse oximetry Branch Body temperature 2019-09-18 21:14:00 37 Bri [facility] Body height 2019-09-18 21:14:00 193 cm [facility] Body weight 2019-09-18 21:14:00 111.131 kg [facility] BMI 2019-09-18 21:14:00 29.82 kg/m2 [facility] Procedures Procedure Date / Time Performing Clinician Source Performed CT ABDOMEN PELVIS W 2019-09-19 00:04:23 Jessica Gomes [facility] CONTRAST [facility] US SCROTUM AND CONTENTS 2019-09-18 23:22:18 Jessica [facility]omes [facility] 2019-09-18 22:08:00 Jessica Gomes [facility] BASIC METABOLIC PANEL 2019-09-18 22:07:00 Jesisca Gomes [facility] (NA, K, CL, CO2, [facility] GLUCOSE, BUN, CREATININE, CA) CBC WITH DIFFERENTIAL 2019-09-18 22:07:00 Jessica Gomes [facility] NOTICE OF PRIVACY 2019-09-18 21:08:54 Doctor Unassigned, No Univ [facility] PRACTICES Name [facility] CONSENT/REFUSAL FOR 2019-09-18 21:08:29 Doctor Unassigned, [facility] Name [facility] URINALYSIS 2019-09-17 18:41:00 Eliel Corbett [facility] COMP. METABOLIC PANEL 2019-09-17 17:37:00 [facility] ([id number]) [facility] CBC WITH DIFFERENTIAL 2019-09-17 17:37:00 [facility] PHYSICIAN ORDERS 2019-09-17 06:01:00 Doctor Unassigned, [facility] Start End Encounter Admission Attending Care Care Encounter Source Date/Time Date/Time Type Type Clinicians Facility Department ID 2019-09-18 2019-09-18 Emergency Jerson [facility] [id number] 15:10:48 19:29:00 Jessica Portillo [id number] [place] 4.2.7.2.686 [place] [id number] 2019-09-18 2019-09-18 Emergency [facility] [id number] Univers 15:10:48 19:29:[address] [facility] [place] 2019-09-18 2019-09-18 [facility] [id number] Univers 15:10:48 19:29:00 Jessica Portillo [id number] ity [place] [id number] [facility] 084 [place] 2019-09-18 2019-09-18 Orders Doctor FERGUSON [id number] 00:00:00 00:00:00 Only Unassigned, MAURI [id number] [facility] [id number] 2019-09-18 2019-09-18 Orders Doctor FERGUSON [id number] Univers 00:00:00 00:00:00 Only Unassigned, MAURI [id number] [facility] 4.2.7.2.686 Harry as [id number] [facility] [address] [place] 2019-09-17 2019-09-17 Gardening Supervisor Moon Moss Lab Main [facility] [id number] Univers 11:23:09 11:38:09 Visit Eliel Corbett [id number] ity [place] [id number] [facility] dical nal 353 [facility] 2019-09-17 2019-09-17 Gardening Supervisor Moon Moss [facility] [id number] 11:23:09 11:38:09 Visit Lab Main Lindsey [id number] [place] 4.2.7.2.686 Professio [id number] [facility] 353 [facility] 2019-09-17 2019-09-17 Orders Doctor MARTY [id number] Univers 00:00:00 00:00:00 Only Unassigned, MAURI 350.1.13.10 ity of [place] [facility] 4.2.7.2.686 Harry as [id number] Medi raúl 009 Branch 2019-09-17 2019-09-17 Orders Doctor MARTY [id number] 00:00:00 00:00:00 Only Unassigned, MAURI [id number] [place] [facility] 4.2.7.2.686 [id number] [id number] Results Test Test Test Results Result Source Description Time Comments Comments CT ABDOMEN 2019-09- No acute process Univers ity of PELVIS W 09 identified in the abdomen [place] [facility] CONTRAST 00:15:12 or pelvis. Left inguinal Branch hernia containing only fat at the time of the exam. RL: 460 AFC: [id number] Indication: Acute abdominal pain COMPARISON: None TECHNIQUE: Axial images of the abdomen and pelvis are performed followingadministration of intravenous contrast material. Images were reformatted inthe coronal and sagittal plane. CT scan was performed according to ALARA(as low as reasonably achievable) policy. FINDINGS: The lung bases are clear. The liver, gallbladder, spleen, adrenalglands and pancreas are within normal limits. The left kidney isunremarkable. There is a cortical cyst in the right kidney measuring 3.6cm. No abdominal aortic aneurysm or dissection is appreciated. There is no free fluid in the pelvis. There is a left inguinal herniacontaining only fat at the time of the exam. The patient is status postventral hernia repair. There is no bowel obstruction, widespreaddiverticulosis or acute diverticulitis. The appendix is not separatelyidentified. ?Bone windows through the abdomen and pelvis demonstrate noosseous destructive lesion. [facility], Radiant Results Inft User - 09/18/2019 6:16 PM CSTIndication: Acute abdominal painCOMPARISON: NoneTECHNIQUE: Axial images of the abdomen and pelvis are performed followingadministration of intravenous contrast material. Images were reformatted inthe coronal and sagittal plane. CT scan was performed according to ALARA(as low as reasonably achievable) policy.FINDINGS: The lung bases are clear. The liver, gallbladder, spleen, adrenalglands and pancreas are within normal limits. The left kidney isunremarkable. There is a cortical cyst in the right kidney measuring 3.6cm. No abdominal aortic aneurysm or dissection is appreciated.There is no free fluid in the pelvis. There is a left inguinal herniacontaining only fat at the time of the exam. The patient is status postventral hernia repair. There is no bowel obstruction, widespreaddiverticulosis or acute diverticulitis. The appendix is not separatelyidentified. Bone windows through the abdomen and pelvis demonstrate noosseous destructive lesion.IMPRESSIONNo acute process identified in the abdomen or pelvis.Left inguinal hernia containing only fat at the time of the exam.RL: 460AFC: [id number] SCROTUM AND 2019-09- Normal scrotal Unive ity of CONTENTS 08 ultrasound. RL: 460 [facility]: [facility] 23:34:52 [id number] Electronically Bran ch signed by Berkley Rodríguez MD, PhD at 09/18/2019 5:34 PMOrdering physician: JESSICA GOMES INDICATION: Right-sided groin pain COMPARISON: None FINDINGS: Grayscale and Doppler images of the scrotum. The right testismeasures 4.4 x 1.7 x 3.6 cm and the left testis measures 2.8 x 2.5 x 1.9cm. There is normal color flow in the testes bilaterally, with normalvascular waveforms. No asymmetric enlargement or hyperemia of eitherepididymis is seen to suggest epididymitis. [facility], Radiant Results Inft User - 09/18/2019 5:35 PM CSTOrdering physician: JESSICA GOMESINDICATION: Right-sided groin painCOMPARISON: NoneFINDINGS: Grayscale and Doppler images of the scrotum. The right testismeasures 4.4 x 1.7 x 3.6 cm and the left testis measures 2.8 x 2.5 x 1.9cm. There is normal color flow in the testes bilaterally, with normalvascular waveforms. No asymmetric enlargement or hyperemia of eitherepididymis is seen to suggest epididymitis.IMPRESSIONNor mal scrotal ultrasound.RL: 460AF: [id number] signed by Berkley Rodríguez MD, PhD at 09/18/2019 5:34 PM BASIC METABOLIC PANEL (NA, K, CL, CO2, GLUCOSE, BUN, 2019-09 23:06:00 CREATININE, CA) Test Item Value Reference Range Interpretation Comme nts NA (test code = 9144054247) 143 mmol/L 135-145 K (test code = 2760980819) 4.1 mmol/L 3.5-5 CL (test code = 1944868541) 106 mmol/L 98-108 CO2 TOTAL (test code = 27 mmol/L 23-31 9913987816) AGAP (test code = 7208692186) 2-16 BUN (test code = 2143656927) 13 mg/dL 7-23 GLUCOSE (test code = 1471785344) 100 mg/dL 70-110 CREATININE (test code = 1.03 mg/dL 0.6-1.25 3051999226) CALCIUM (test code = 4099294717) 9.4 mg/dL 8.6-10.6 eGFR Calculation (Non- mL/min/1.73m2 [place]) (test code = 0496929732) eGFR Calculation ( mL/min/1.73m2 [place]) (test code = 0126803436) YENNY (test code = YENNY) Association of Glomerular Filtration Rate (GFR) and Staging of Kidney Disease* + +--------- + ----+| GFR (mL/min/1.73 m2) ?| With Kidney Damage ?| ?Without Kidney Damage+ +--- + +| ?>90 ?| ?Stage one ?| ? Normal ?+ +-------- + -----+| ?60-89 ?| ?Stage two ?| ? Decreased GFR ? + +--------- + ----+| ?30-59 ?| ?Stage three ?| ? Stage three ? + +--------- + ----+| ?15-29 ?| ?Stage four ? | ? Stage four ?+ +-------- + -----+| ?<15 (or dialysis) ? ?| ?Stage five ? | ? Stage five ?+ +-------- + -----+ *Each stage assumes the associated GFR level has been in effect for at least three months. ?Stages 1 to 5, with or without kidney disease, indicate chronic kidney disease. Notes: Determination of stages one and two (with eGFR >59mL/min/1.73 m2) requires estimation of kidney damage for at least three months as defined by structural or functional abnormalities of the kidney, manifested by either:Pathological abnormalities or Markers of kidney damage (including abnormalities in the composition of the blood or urine or abnormalities in imaging tests). [facility]00 Test Item Value Reference Range Interpretation Comments APPEARANCE (test code = Clear Clear 4455094546) COLOR (test code = Yellow Yellow 0148554075) PH (test code = 4.8-8.0 6858217694) SP GRAVITY (test code = 1.003-1.030 6234038580) GLU U QUAL (test code = Normal Normal 4719892700) BLOOD (test code = Negative Negative 9952521514) KETONES (test code = 5 mg/dL Negative A 9518168125) PROTEIN (test code = Negative Negative 2887-8) UROBILIN (test code = 4.0 mg/dL Normal A 4018060697) BILIRUBIN (test code = Negative Negative 4279427062) NITRITE (test code = Negative Negative 4143950589) LEUK JARRET (test code = Negative Negative 4264786928) RBC/HPF (test code = See_Comment [Autom ated message] 7325618480) The system [employer] generated this result transmit shantel reference range : 0 - 3 HPF. The refe rence range was not u sed to interpret th is result as normal/abnormal . WBC/HPF (test code = See_Comment [Autom ated message] 5658914083) The system [employer] generated this result transmit shantel reference range : 0 - 5 HPF. The refe rence range was not u sed to interpret th is result as normal/abnormal . BACTERIA (test code = Negative Negative 3224310033) MUCOUS (test code = Moderate Negative LPF A 6726705261) HYAL CAST (test code = See_Comment H [Aut omated message] 3854085321) The system [employer] generated this result transmit shantel reference range : <=2 LPF. The refere nce range was not u sed to interpret th is result as normal/abnormal . Lab Interpretation (test Abnormal code = 63678-5) [facility] WITH [id number] 22:16:00 Test Item Value Reference Range Interpretation Comments WBC (test code = See_Comment [Automated message] 6690-2) The system [employer] generated this result transmitted ref erence range: 4.20 - 1 0.70 10*3/?L. The re ference range was not u sed to interpret this result as normal/abnor mal. RBC (test code = See_Comment [Automated message] 789-8) The system [employer] generated this result transmitted ref erence range: 4.26 - 5 .52 10*6/?L. The re ference range was not u sed to interpret this result as normal/abnor mal. HGB (test code = 14.5 g/dL 12.2-16.4 718-7) HCT (test code = 42.3 % 38.4-49.3 4544-3) MCV (test code = 91.6 fL 81.7-95.6 787-2) MCH (test code = 31.4 pg 26.1-32.7 785-6) MCHC (test code = 34.3 g/dL 31.2-35 786-4) RDW-SD (test code 43.8 fL 38.5-51.6 = 19752-9) RDW-CV (test code 13.1 % 12.1-15.4 = 788-0) PLT (test code = See_Comment [Automated message] 777-3) The system [employer] generated this result transmitted ref erence range: 150 - 32 8 10*3/?L. The re ference range was not u sed to interpret this result as normal/abnor mal. MPV (test code = 10.4 fL 9.8-13 88550-5) NRBC/100 WBC (test See_Comment [Automat ed message] code = 4018056561) The syste m which generated this result transmitted ref erence range: 0.0 - 10 .0 /100 WBCs. The refer ence range was not u sed to interpret this result as normal/abnor mal. NRBC x10^3 (test <0.01 See_Comment [Automated message] code = 0662173692) The syste m which generated this result transmitted ref erence range: 10*3/?L. The reference range was not used to interpr et this result as normal/abnormal . GRAN MAT (NEUT) % 51.9 % (test code = 770-8) IMM GRAN % (test 0.40 % code = 5707500403) LYMPH % (test code 36.7 % = 736-9) MONO % (test code 8.2 % = 5905-5) EOS % (test code = 1.9 % 713-8) BASO % (test code 0.9 % = 706-2) GRAN MAT 4.08 10*3/uL 1.99-6.95 x10^3(ANC) (test code = 4162077864) IMM GRAN x10^3 0.03 10*3/uL 0-0.06 (test code = 8318443727) LYMPH x10^3 (test 2.88 10*3/uL 1.09-3.23 code = 731-0) MONO x10^3 (test 0.64 10*3/uL 0.36-1.02 code = 742-7) EOS x10^3 (test 0.15 10*3/uL 0.06-0.53 code = 711-2) BASO x10^3 (test 0.07 10*3/uL 0.01-0.09 code = 704-7) [facility] Test Item Value Reference Range Interpretation Comments APPEARANCE (test code = Clear Clear 9135721993) COLOR (test code = Yellow Yellow 5257056736) PH (test code = 4.8-8.0 8355759852) SP GRAVITY (test code = 1.003-1.030 1901757975) GLU U QUAL (test code = Normal Normal 9126634671) BLOOD (test code = Negative Negative 3160448337) KETONES (test code = Negative Negative 7773006348) PROTEIN (test code = Negative Negative 2887-8) UROBILIN (test code = Normal Normal 1691002202) BILIRUBIN (test code = Negative Negative 6535622779) NITRITE (test code = Negative Negative 2438778103) LEUK JARRET (test code = Negative Negative 5567036974) RBC/HPF (test code = See_Comment [Autom ated message] 7443445273) The system [employer] generated this result transmitted ref erence range: 0 - 3 HP F. The reference range was not used to int erpret this result as normal/abnormal . WBC/HPF (test code = See_Comment [Autom ated message] 0841191203) The system [employer] generated this result transmitted ref erence range: 0 - 5 HP F. The reference range was not used to int erpret this result as normal/abnormal . BACTERIA (test code = Negative Negative 1755564959) MUCOUS (test code = Slight Negative LPF A 9997607610) SQ EPITH (test code = HPF 3317051710) Lab Interpretation (test Abnormal code = 27617-5) [facility] 18:42:00 Test Item Value Reference Range Interpretation Comments NA (test code = 141 mmol/L 135-145 8519431913) K (test code = 4.3 mmol/L 3.5-5 8962213531) CL (test code = 105 mmol/L 98-108 2214575924) CO2 TOTAL (test code = 25 mmol/L 23-31 5568842140) AGAP (test code = 2-16 0005572033) BUN (test code = 8 mg/dL 7-23 0538402658) GLUCOSE (test code = 100 mg/dL 70-110 4567135265) CREATININE (test code 0.88 mg/dL 0.6-1.25 = 6624936016) TOTAL BILI (test code 0.3 mg/dL 0.1-1.1 = 6467716037) CALCIUM (test code = 9.6 mg/dL 8.6-10.6 3705432882) T PROTEIN (test code = 7.4 g/dL 6.3-8.2 7956965059) ALBUMIN (test code = 4.8 g/dL 3.5-5 7281961951) ALK PHOS (test code = 75 U/L 34-122 3842573350) ALTv (test code = 28 U/L 5-50 1742-6) AST(SGOT) (test code = 30 U/L 13-40 8620174048) eGFR Calculation mL/min/1.73m2 (Non-) (test code = 8688161835) eGFR Calculation mL/min/1.73m2 () (test code = 5098096057) YENNY (test code = YENNY) Association of Glomerular Filtration Rate (GFR) and Staging of Kidney Disease* + -+ + ---+| GFR (mL/min/1.73 m2) ?| With Kidney Damage ?| ?Without Kidney Damage+ -------+ ------+ ---------+| ?>90 ?| ?Stage one ?| ? Normal ?+ --+ -+ ----+| ?60-89 ?| ?Stage two ?| ? Decreased GFR ? + -+ + ---+| ?30-59 ?| ?Stage three ?| ? Stage three ? + -+ + ---+| ?15-29 ?| ?Stage four ? | ? Stage four ?+ --+ -+ ----+| ?<15 (or dialysis) ? ?| ?Stage five ? | ? Stage five ?+ --+ -+ ----+ *Each stage assumes the associated GFR level has been in effect for at least three months. ?Stages 1 to 5, with or without kidney disease, indicate chronic kidney disease. Notes: Determination of stages one and two (with eGFR >59mL/min/1.73 m2) requires estimation of kidney damage for at least three months as defined by structural or functional abnormalities of the kidney, manifested by either:Pathological abnormalities or Markers of kidney damage (including abnormalities in the composition of the blood or urine or abnormalities in imaging tests). [facility] WITH [id number] 18:05:00 Test Item Value Reference Range Interpretation Comments WBC (test code = See_Comment [Automated message] 6690-2) The system [employer] generated this result transmitted ref erence range: 4.20 - 1 0.70 10*3/?L. The re ference range was not u sed to interpret this result as normal/abnor mal. RBC (test code = See_Comment [Automated message] 789-8) The system [employer] generated this result transmitted ref erence range: 4.26 - 5 .52 10*6/?L. The re ference range was not u sed to interpret this result as normal/abnor mal. HGB (test code = 14.8 g/dL 12.2-16.4 718-7) HCT (test code = 44.2 % 38.4-49.3 4544-3) MCV (test code = 91.9 fL 81.7-95.6 787-2) MCH (test code = 30.8 pg 26.1-32.7 785-6) MCHC (test code = 33.5 g/dL 31.2-35 786-4) RDW-SD (test code 43.5 fL 38.5-51.6 = 33283-4) RDW-CV (test code 12.9 % 12.1-15.4 = 788-0) PLT (test code = See_Comment [Automated message] 777-3) The system [employer] generated this result transmitted ref erence range: 150 - 32 8 10*3/?L. The re ference range was not u sed to interpret this result as normal/abnor mal. MPV (test code = 10.2 fL 9.8-13 34752-8) NRBC/100 WBC (test See_Comment [Automat ed message] code = 3544598186) The syste m which generated this result transmitted ref erence range: 0.0 - 10 .0 /100 WBCs. The refer ence range was not u sed to interpret this result as normal/abnor mal. NRBC x10^3 (test <0.01 See_Comment [Automated message] code = 8317022981) The syste m which generated this result transmitted ref erence range: 10*3/?L. The reference range was not used to interpr et this result as normal/abnormal . GRAN MAT (NEUT) % 51.6 % (test code = 770-8) IMM GRAN % (test 0.30 % code = 0139091233) LYMPH % (test code 37.6 % = 736-9) MONO % (test code 8.3 % = 5905-5) EOS % (test code = 1.3 % 713-8) BASO % (test code 0.9 % = 706-2) GRAN MAT 3.29 10*3/uL 1.99-6.95 x10^3(ANC) (test code = 7276904663) IMM GRAN x10^3 <0.03 0-0.06 (test code = 8940626888) LYMPH x10^3 (test 2.40 10*3/uL 1.09-3.23 code = 731-0) MONO x10^3 (test 0.53 10*3/uL 0.36-1.02 code = 742-7) EOS x10^3 (test 0.08 10*3/uL 0.06-0.53 code = 711-2) BASO x10^3 (test 0.06 10*3/uL 0.01-0.09 code = 704-7) [facility]"
[2021-12-28 19:06] LABS: Absolute Lymphocytes (CBC) 2.5 K/uL (0.7-4.9); Hematocrit 41.1 % (39.6-49.0); Lymphocytes % 42.4 % (15.3-44.8); MPV 7.9 fL (7.6-11.3); RBC Red Blood Cell Count 4.47 M/uL (4.33-5.43)
[2021-12-28 19:18] LABS: Albumin 3.8 g/dL (3.4-5.0); Bilirubin Total 0.5 mg/dL (0.2-1.0); Potassium 3.5 mmol/L (3.5-5.1); Protein, Total 7.3 g/dL (6.4-8.2)
--- NOTE | 2021-12-28 19:59 | RAD REPORT ---
EXAM DESCRIPTION: CT - Abdomen Pelvis W Contrast - 12/28/2021 7:47 pm CLINICAL HISTORY: LLQ abdominal pain COMPARISON: No comparisons TECHNIQUE: Biphasic, helical CT imaging of the abdomen and pelvis was performed following 100 ml non -ionic IV contrast. No oral contrast given. All CT scans are performed using dose optimization technique as appropriate and may include automated exposure control or mA/KV adjustment according to patient size. FINDINGS: No suspicious findings in the lung bases. The liver, spleen, and pancreas show no suspicious findings. Liver attenuation borderline fatty infil trated. Punctate gallstones are suspected. No acute gallbladder finding. Biliary tree is normal size. Symmetric renal function is seen with no hydronephrosis or suspicious renal mass. No pyelonephritis o r acute parenchymal process. No bladder abnormalities. No adrenal abnormalities. No dilated bowel loops or bowel wall thickening. No evidence for appendicitis. Moderate stool volume seen in nondilated colon. No free air, free fluid or inflammatory stranding. No mass or bulky lympha denopathy. Moderate-sized fat filled left inguinal hernia is present. This contains only fat no conge stion or edema. No suspicious bony findings. Disc and bone degenerative changes are present most notably at L5-S1. SI joint degenerative changes are present as well. IMPRESSION: Contrast enhanced CT abdomen and pelvis showing no acute or emergent finding. Cholelithiasis evident without cholecystitis or biliary tree abnormality.
[2021-12-28] MEDS ORDERED: MORPHINE 4 MG/ML SYR ONE (20:27)
[2021-12-28] MEDS ORDERED: ONDANSETRON 4 MG/2 ML VIAL ONE (20:27)
[2021-12-28 20:53] LABS: Urine Bacteria <20 /HPF (NONE SEEN); Urine Mucus 1+ /HPF (NONE SEEN); Urine RBC <5 /HPF (NONE SEEN)
--- NOTE | 2021-12-28 21:31 | ER ---
Nurse's Notes [facility] Name: Robbie Cano Age: 46 yrs Sex: Male : 1975 Arrival Date: 12/28/2021 Time: 17:39 Bed 14 Private MD: Diagnosis: Unilateral inguinal hernia, without obstruction or gangrene, not specified as recurrent-left Presentation: 12/28 18:22 Chief complaint: Patient states: "hernia pain." Pt reports that he has had increased ss testicular pain and swelling and has a known hernia over the past week or so. Pt reports that PCP sent him to the ER because the surgeon he sees is as400 consultant tonight. Coronavirus screen: Client denies travel out of the [place] in the last 14 days. Ebola Screen: Patient denies exposure to infectious person. Patient denies travel to an Ebola-affected area in the 21 days before illness onset. Initial Sepsis Screen: Does the patient meet any 2 criteria? No. Patient's initial sepsis screen is negative. Does the patient have a suspected source of infection? No. Patient's initial sepsis screen is negative. Risk Assessment: Do you want to hurt yourself or someone else? Patient reports no desire to harm self or others. Onset of symptoms was December 2021. 18:22 Method Of Arrival: Ambulatory ss 18:22 Acuity: RAMÍREZ 3 ss Historical: - Allergies: 18:24 NKDA; ss - Home Meds: 18:24 None [Active]; ss - PMHx: 18:24 heat stroke; ss - PSHx: 18:24 Hernia repair x 2; ss - Social history:: Smoking status: Patient denies any tobacco usage or history of. Screenin:52 Abuse screen: Denies threats or abuse. Denies injuries from another. Nutritional mitchell screening: No deficits noted. Tuberculosis screening: No symptoms or risk factors identified. Fall Risk None identified. Assessment: 19:19 Reassessment: The pt was placed in room #14 at this time. mitchell Vital Signs: 18:22 BP 130 / 82; Pulse 79; Resp 16; Temp 98.9(TE); Pulse Ox 99% on R/A; Weight 106.59 kg; ss Height 6 ft. 3 in. (190.50 cm); Pain 8/10; 20:50 BP 121 / 78; Pulse 68; Resp 16; Temp 98.0; Pulse Ox 96% on R/A; mitchell 21:52 BP 118 / 80; Pulse 72; Resp 16; Temp 98.0; Pulse Ox 99% on R/A; Pain 2/10; mitchell 18:22 Body Mass Index 29.37 (106.59 kg, 190.50 cm) ED Course: 17:39 Patient arrived in ED. ds1 17:52 Cristhian Martin PA is PHCP. cp 17:52 Jimenez Keyes MD is Attending Physician. cp 18:24 Triage completed. ss 18:24 Arm band placed on right wrist. ss 19:19 Talya Alcantara, RN is Primary Nurse. mitchell 19:48 CT Abd/Pelvis - IV Contrast Only In Process Unspecified. EDMS 20:35 Urine Microscopic Only Sent. mitchell 21:29 Eliel Corbett MD is Referral Physician. cp Administered Medications: 20:34 Drug: Zofran (Ondansetron) 4 mg Route: IVP; Site: left antecubital; mitchell 20:35 Drug: morphine 4 mg Route: IVP; Site: left antecubital; mitchell Outcome: 21:30 Discharge ordered by . cp 21:52 Patient left the ED. mitchell Signatures: Dispatcher [employer] EDMT Chloe Melchor ds1 Imani Damian RN RN Cristhian Martin PA PA cp Talya Alcantara, SUPA COWART mitchell
--- NOTE | 2021-12-28 21:31 | EDPHYS ---
Physician Documentation [facility] Name: Robbie Cano Age: 46 yrs Sex: Male : 1975 Arrival Date: 12/28/2021 Time: 17:39 Bed 14 Private MD: ED Physician Jimenez Keyes HPI: 12/28 19:00 This 46 yrs old Male presents to ER via Ambulatory with complaints of Hernia Pain. cp 19:00 The patient presents with abdominal pain in the lower abdomen. cp 19:00 Onset: The symptoms/episode began/occurred increasing over past week. The symptoms do cp not radiate. Associated signs and symptoms: Pertinent positives: intermittent testicular pain, Pertinent negatives: constipation, diarrhea, dysuria, fever, vomiting. The symptoms are described as intermittent. Modifying factors: the symptoms are aggravated by activity. Patient reports history of abdominal hernia repair performed by DR Corbett in the past, concerned about reoccurrence of hernia. Historical: - Allergies: 18:24 NKDA; ss - Home Meds: 18:24 None [Active]; ss - PMHx: 18:24 heat stroke; ss - PSHx: 18:24 Hernia repair x 2; ss - Social history:: Smoking status: Patient denies any tobacco usage or history of. ROS: 19:05 Abdomen/GI: Positive for abdominal pain, Negative for vomiting, diarrhea, constipation, cp anorexia. 19:05 Constitutional: Negative for body aches, chills, fever, poor PO intake. cp 19:05 Respiratory: Negative for cough, shortness of breath, wheezing. 19:05 Back: Negative for pain at rest, pain with movement, radiated pain. 19:05 : Negative for urinary symptoms, flank pain, penile pain. 19:05 Neuro: Negative for altered mental status, headache, weakness. 19:05 All other systems are negative. Exam: 19:10 Constitutional: The patient appears in no acute distress, alert, awake, non-toxic, well cp developed, well nourished. 19:10 Head/Face: Normocephalic, atraumatic. cp 19:10 Eyes: Periorbital structures: appear normal, Conjunctiva: normal, no exudate, no injection, Sclera: no appreciated abnormality, Lids and lashes: appear normal, bilaterally. 19:10 ENT: External ear(s): are unremarkable, Nose: is normal, Mouth: is normal, Posterior pharynx: is normal, airway is patent. 19:10 Chest/axilla: Inspection: normal. 19:10 Cardiovascular: Rate: normal, Rhythm: regular. 19:10 Respiratory: the patient does not display signs of respiratory distress, Respirations: normal, no use of accessory muscles, no retractions, labored breathing, is not present. 19:10 Abdomen/GI: Inspection: abdomen appears normal, Bowel sounds: active, all quadrants, Palpation: soft, in all quadrants, mild abdominal tenderness, in the suprapubic area, voluntary guarding, is not appreciated, involuntary guarding, is not appreciated, Hernia: noted in the left inguinal area, incarceration, is not appreciated, tenderness, that is mild. 19:10 Back: CVA tenderness, is absent. 19:10 : Male external genitalia: uncircumcised. 19:10 Skin: cellulitis, is not appreciated, no rash present. Vital Signs: 18:22 BP 130 / 82; Pulse 79; Resp 16; Temp 98.9(TE); Pulse Ox 99% on R/A; Weight 106.59 kg; ss Height 6 ft. 3 in. (190.50 cm); Pain 8/10; 20:50 BP 121 / 78; Pulse 68; Resp 16; Temp 98.0; Pulse Ox 96% on R/A; mitchell 21:52 BP 118 / 80; Pulse 72; Resp 16; Temp 98.0; Pulse Ox 99% on R/A; Pain 2/10; mitchell 18:22 Body Mass Index 29.37 (106.59 kg, 190.50 cm) ss MDM: 19:09 Patient medically screened. cp 21:30 Data reviewed: vital signs, nurses notes, lab test result(s), radiologic studies, CT cp scan. 21:30 Counseling: I had a detailed discussion with the patient and/or guardian regarding: the cp historical points, exam findings, and any diagnostic results supporting the discharge/admit diagnosis, lab results, radiology results, the need for outpatient follow up, a general surgeon, to return to the emergency department if symptoms worsen or persist or if there are any questions or concerns that arise at home. Response to treatment: the patient's symptoms have markedly improved after treatment, and as a result, I will discharge patient. 12/28 18:48 Order name: CBC with Diff; Complete Time: 20:26 cp 12/28 20:26 Interpretation: Reviewed. cp 12/28 18:48 Order name: CMP; Complete Time: 20:26 cp 12/28 20:26 Interpretation: Normal except: CL 111. 12/28 18:48 Order name: Lipase; Complete Time: 20:26 cp 12/28 18:48 Order name: Urine Microscopic Only; Complete Time: 21:17 cp 12/28 21:17 Interpretation: Reviewed. 12/28 18:48 Order name: CT Abd/Pelvis - IV Contrast Only; Complete Time: 20:26 cp 12/28 21:18 Interpretation: Report reviewed. 12/28 18:48 Order name: IV Saline Lock; Complete Time: 20:35 cp 12/28 18:48 Order name: Labs collected and sent; Complete Time: 20:35 12/28 18:48 Order name: Urine Dipstick-Ancillary (obtain specimen) cp Administered Medications: 20:34 Drug: Zofran (Ondansetron) 4 mg Route: IVP; Site: left antecubital; mitchell 20:35 Drug: morphine 4 mg Route: IVP; Site: left antecubital; mitchell Disposition Summary: 12/28/21 21:30 Discharge Ordered Location: Home cp Problem: new cp Symptoms: have improved cp Condition: Stable cp Diagnosis - Unilateral inguinal hernia, without obstruction or gangrene, not specified as cp recurrent - left(12/28/21 21:31) Followup: cp - With: Eliel Corbett MD - When: 2 - 3 days - Reason: left inguinal hernia Discharge Instructions: - Discharge Summary Sheet cp - Inguinal Hernia, Adult cp - Form - Excuse from Work, School, or Physical Activity cp Forms: - Medication Reconciliation Form cp - Thank You Letter cp - Antibiotic Education cp - Prescription Opioid Use cp - Work release form mitchell Prescriptions: - Ibuprofen 800 mg Oral Tablet - take 1 tablet by ORAL route every 8 hours As needed take with food; 30 tablet; cp Refills: 0, Product Selection Permitted - Ultracet 37.5-325 mg Oral Tablet - take 1 tablet by ORAL route every 6 hours - for up to 5 days; do not exceed 8 cp tablets per day.; 20 tablet; Refills: 0, Product Selection Permitted Signatures: Dispatcher [employer] EDMS Imani Damian RN RN ss Cristhian Martin PA PA cp Talya Alcantara RN SUPA mitchell Corrections: (The following items were deleted from the chart) 18:01 17:54 Group A Streptococcus Rapid Sc+BA.LAB.BRZ ordered. EDMS EDMS 18:01 17:55 Group A Streptococcus Rapid Sc ordered. EDMS EDMS 18:02 17:54 Influenza Screen (A \T\ B)+BA.LAB.BRZ ordered. EDMS EDMS 18:02 17:54 Respiratory Syncytial Virus Ag+BA.LAB.BRZ ordered. EDMS EDMS 18:05 17:54 Chest Pa And Lat (2 Views)+RAD.RAD.BRZ ordered. EDMS EDMS 21:31 21:30 Unilateral inguinal hernia, without obstruction or gangrene, not specified as cp recurrent cp
[2021-12-28 21:59] VITALS: TEMP 98
[2021-12-28 22:02] VITALS: BP 118/80; O2SAT 99
== END 2021-12-28 21:52 | disposition home or self-care (01) ==
LOC: ER 17:36
DX: K40.91 Unilateral inguinal hernia, without obstruction or gangrene, recurrent (principal); K80.20 Calculus of gallbladder without cholecystitis without obstruction
CPT/HCPCS: 85025; 36415; 81015; 83690; 80053; 74177; 96375; 96374; 99283; Q9967; J2405

== ENCOUNTER 2022-01-02 06:41 | Observation (INO) | payer OTHER ==
--- OUTSIDE RECORDS SUMMARY | 2022-01-02 06:44 | XMS REPORT | Continuity of Care Document ---
:[address] [facility] t Address [address] [place] [address] Dr. [address]. [address] [place] [address] Care Team Providers Name Role Phone CRYS MORALES Primary Care Physician Unavailable Morro Gomes APN Attending Clinician Morro GOMES Attending Clinician Unavailable Doctor Unassigned, Name Attending Clinician Unavailable Pob, Lab Main Attending Clinician Unavailable Aric MARMOLEJO, P Attending Clinician Morro GOMES Admitting Clinician Unavailable Payers Payer Name Policy Type Policy Number Effective Date Expiration Date David VILLASENOR O [id number] 2019 00:00:00 2021 00:00 :00 Problems Condition Condition Condition Status Onset Resolution Last Treating Co mments Source Name Details Category Date Date Treatment Clinician Date No known No known Disease Unive rs active active ity of problems problems [facility] Allergies, Adverse Reactions, Alerts Allergy Allergy Status Severity Reaction(s) Onset Inactive Treating Comm ents Source Name Type Date Date Clinician NO KNOWN Drug Active Univers ALLERGIE Class ity of S [facility] Social History Social Habit Start Date Stop Date Quantity Comments Source Sex Assigned At Uni versity [facility] Smoking Status Start Date Stop Date Source [facility] Medications Ordered Filled Start Stop Current Ordering Indication Dosage Frequency Signature Comments Components Source Medication Medication Date Date Medication? Clinician (SIG) Name Name iohexol 2020-0 2020- No 120mL 120 mL, Unive rs (OMNIPAQUE 2-09 02-09 Intravenou it y of 350 00:15: 00:00 s, ONCE, 1 [place] BULK-100 00 :00 dose, Sat Medica l mL) 09/18/19 at Branch injection 1815, 120 mL Routine sulfamethox 2014-08 Yes 1{tbl} Take 1 Tab Univers azole-trime 0-02 by mouth ity of thoprim 00:00: every 12 [place] (BACTRIM 00 (twelve) Medical DS) 800-160 hours. Branch mg tablet sulfamethox 2014-08 Yes 1{tbl} Take 1 Tab Univers azole-trime 0-02 by mouth ity of thoprim 00:00: every 12 [place] (BACTRIM 00 (twelve) Medical DS) 800-160 hours. Branch mg tablet sulfamethox 2014-08 Yes 1{tbl} Take 1 Tab Univers azole-trime 0-02 by mouth ity of thoprim 00:00: every 12 [place] (BACTRIM 00 (twelve) Medical DS) 800-160 hours. Branch mg tablet sulfamethox 2014-08 Yes 1{tbl} Take 1 Tab Univers azole-trime 0-02 by mouth ity of thoprim 00:00: every 12 [place] (BACTRIM 00 (twelve) Medical DS) 800-160 hours. Branch mg tablet Vital Signs Vital Name Observation Time Observation Value Comments Source Systolic blood 2019-09-19 01:10:00 141 mm[Hg] [facility] Diastolic blood 2019-09-19 01:10:00 90 mm[Hg] [facility] Heart rate 2019-09-19 01:10:00 98 /min [facility] Respiratory rate 2019-09-19 01:10:00 18 /min [facility] Oxygen saturation in 2019-09-19 01:10:00 96 /min [facility] Arterial blood by [facility] Pulse oximetry [place] Body temperature 2019-09-18 21:14:00 37 Bri [facility] Body height 2019-09-18 21:14:00 193 cm [facility] Body weight 2019-09-18 21:14:00 111.131 kg [facility] BMI 2019-09-18 21:14:00 29.82 kg/m2 [facility] Systolic blood 2019-09-19 01:10:00 141 mm[Hg] Univer sity of pressure [facility] Diastolic blood 2019-09-19 01:10:00 90 [facility]Hg[facility] 2019-09-19 01:10:00 98 /min [facility] Respiratory rate 2019-09-19 01:10:00 18 /min [facility] Oxygen saturation in 2019-09-19 01:10:00 96 /min [facility] Arterial blood by [facility] Pulse oximetry Branch Body temperature 2019-09-18 21:14:00 37 Bri [facility] Body height 2019-09-18 21:14:00 193 cm [facility] Body weight 2019-09-18 21:14:00 111.131 kg [facility] BMI 2019-09-18 21:14:00 29.82 kg/m2 [facility] Procedures Procedure Date / Time Performing Clinician Source Performed CT ABDOMEN PELVIS W 2019-09-19 00:04:23 Jessica Gomes [facility] CONTRAST [facility] US SCROTUM AND CONTENTS 2019-09-18 23:22:18 [facility]omes [facility] 2019-09-18 22:08:00 Jessica Gomes [facility] BASIC METABOLIC PANEL 2019-09-18 22:07:00 Jessica Gomes [facility] (NA, K, CL, CO2, [facility] GLUCOSE, BUN, CREATININE, CA) CBC WITH DIFFERENTIAL 2019-09-18 22:07:00 [facility] NOTICE OF PRIVACY 2019-09-18 21:08:54 Doctor Unassigned, No Univ [facility] PRACTICES Name [facility] CONSENT/REFUSAL FOR 2019-09-18 21:08:29 [facility]igned, [facility] Name [facility] URINALYSIS 2019-09-17 18:41:00 Eliel Corbett [facility] COMP. METABOLIC PANEL 2019-09-17 17:37:00 [facility] ([id number]) [facility] CBC WITH DIFFERENTIAL 2019-09-17 17:37:00 [facility] rs[facility] PHYSICIAN ORDERS 2019-09-17 06:01:00 [facility] Start End Encounter Admission Attending Care Care Encounter Source Date/Time Date/Time Type Type Clinicians Facility Department ID 2019-09-18 2019-09-18 Emergency Jerson [facility] [id number] 15:10:48 19:29:00 Jessica Portillo [id number] [place] 4.2.7.2.686 [place] [id number] 2019-09-18 2019-09-18 Emergency X JERSON [facility] ERT [id number] Univers 15:10:48 19:29:00 JESSICA ity [facility] 2019-09-18 2019-09-18 [facility] [id number] Univers 15:10:48 19:29:00 Jessica Portillo [id number] [place]y [place] [id number] [facility] 084 [place] 2019-09-18 2019-09-18 Orders Doctor FERGUSON [id number] 00:00:00 00:00:00 Only Unassigned, MAURI [address].13.[address] [place]2.7.2.686 [id number] 009 2019-09-18 2019-09-18 Orders Doctor FERGUSON [id number] Univers 00:00:00 00:00:00 Only Unassigned, MAURI 350.1.13.10 [facility] 4.2.7.2.686 Harry as [id number] [facility] 009 [place] 2019-09-17 2019-09-17 Percussion Instrument Repairer Moon Moss Lab Main [facility] [id number] Univers 11:23:09 11:38:09 Visit Eliel Corbett 350.1.13.10 [place] 4[place].2.686 [place] [facility] [phone] Nd dical [facility] 2019-09-17 2019-09-17 Percussion Instrument Repairer Moon Moss [facility] [id number] 11:23:09 11:38:09 Visit Lab Main Lindsey 350.1.13.10 [place] 4.2.7.2.686 Professio [phone] [facility] 2019-09-17 2019-09-17 Orders Doctor MARTY [id number] Univers 00:00:00 00:00:00 Only Unassigned, MAURI 350.1.13.10 ity of [place] [facility] 4.2.7.2.686 Harry as [id number] Medi raúl 009 Branch 2019-09-17 2019-09-17 Orders Doctor MARTY [id number] 00:00:00 00:00:00 Only Unassigned, MAURI 350.1.13.10 [place] [facility] 4.2.7.2.686 [id number] 009 Results Test Test Test Results Result Source Description Time Comments Comments CT ABDOMEN 2019-09- No acute process Univers ity of PELVIS W 09 identified in the abdomen [place] [facility] CONTRAST 00:15:12 or pelvis. Left inguinal Branch hernia containing only fat at the time of the exam. RL: 460 AFC: [id number] Indication: Acute abdominal pain COMPARISON: None TECHNIQUE: [...] at the time of the exam.RL: 460AFC: [id number] SCROTUM AND 2019-09- Normal scrotal [facility] CONTENTS 08 ultrasound. RL: 460 AF: [facility] 23:34:52 [id number] Electronically Bran ch signed by Berkley Rodríguez [...] to suggest epididymitis.IMPRESSIONNor mal scrotal ultrasound.RL: 460AF: [id number] signed by Berkley Rodríguez MD, PhD at 09/18/2019 5:34 PM BASIC METABOLIC PANEL (NA, K, CL, CO2, GLUCOSE, BUN, 2019-09 23:06:00 CREATININE, CA) Test Item Value Reference Range Interpretation Comme nts NA (test code = 5614155651) 143 mmol/L 135-145 K (test code = 6604499486) 4.1 mmol/L 3.5-5 CL (test code = 7726736674) 106 mmol/L 98-108 CO2 TOTAL (test code = 27 mmol/L 23-31 1172155530) AGAP (test code = 1917741032) 2-16 BUN (test code = 1184489269) 13 mg/dL 7-23 GLUCOSE (test code = 5562209111) 100 mg/dL 70-110 CREATININE (test code = 1.03 mg/dL 0.6-1.25 2494075725) CALCIUM (test code = 8937208534) 9.4 mg/dL 8.6-10.6 eGFR Calculation (Non- mL/min/1.73m2 [place]) (test code = 8797281631) eGFR Calculation ( mL/min/1.73m2 [place]) (test code = 6408706313) YENNY (test code = YENNY) Association of [...] or urine or abnormalities in imaging tests). [facility]00 Test Item Value Reference Range Interpretation Comments APPEARANCE (test code = Clear Clear 6222531135) COLOR (test code = Yellow Yellow 8179214058) PH (test code = 4.8-8.0 0810682373) SP GRAVITY (test code = 1.003-1.030 6072359430) GLU U QUAL (test code = Normal Normal 6358612617) BLOOD (test code = Negative Negative 1463760394) KETONES (test code = 5 mg/dL Negative A 0107615593) PROTEIN (test code = Negative Negative 2887-8) UROBILIN (test code = 4.0 mg/dL Normal A 7168703098) BILIRUBIN (test code = Negative Negative 8730160261) NITRITE (test code = Negative Negative 7615716676) LEUK JARRET (test code = Negative Negative 6375605816) RBC/HPF (test code = See_Comment [Autom ated message] 9767279014) The system Vayable generated this result transmit shantel reference range : 0 - 3 HPF. The refe rence range was not u sed to interpret th is result as normal/abnormal . WBC/HPF (test code = See_Comment [Autom ated message] 6457229954) The system Vayable generated this result transmit shantel reference range : 0 - 5 HPF. The refe rence range was not u sed to interpret th is result as normal/abnormal . BACTERIA (test code = Negative Negative 9856763919) MUCOUS (test code = Moderate Negative LPF A 6909726228) HYAL CAST (test code = See_Comment H [Aut omated message] 6996824226) The system Vayable generated this result transmit shantel reference range : <=2 LPF. The refere nce range was not u sed to interpret th is result as normal/abnormal . Lab Interpretation (test Abnormal code = 14326-4) [facility] WITH [id number] 22:16:00 Test Item Value Reference Range Interpretation Comments WBC (test code = See_Comment [Automated message] 6690-2) The system Vayable generated this result transmitted ref erence range: 4.20 - 1 0.70 10*3/?L. The re ference range was not u sed to interpret this result as normal/abnor mal. RBC (test code = See_Comment [Automated message] 789-8) The system Vayable generated this result transmitted ref erence range: [...] RDW-SD (test code 43.8 fL 38.5-51.6 = 54427-9) RDW-CV (test code 13.1 % 12.1-15.4 = 788-0) PLT (test code = See_Comment [Automated message] 777-3) The system Vayable generated this result transmitted ref erence range: 150 - 32 8 10*3/?L. The re ference range was not u sed to interpret this result as normal/abnor mal. MPV (test code = 10.4 fL 9.8-13 12061-6) NRBC/100 WBC (test See_Comment [Automat ed message] code = 9499278738) The syste m which generated this result transmitted ref erence range: 0.0 - 10 .0 /100 WBCs. The refer ence range was not u sed to interpret this result as normal/abnor mal. NRBC x10^3 (test <0.01 See_Comment [Automated message] code = 4640350066) The syste m which generated this result transmitted ref erence range: 10*3/?L. The reference range was not used to interpr et this result as normal/abnormal . GRAN MAT (NEUT) % 51.9 % (test code = 770-8) IMM GRAN % (test 0.40 % code = 1429259260) LYMPH % (test code 36.7 % = 736-9) MONO % (test code 8.2 % = 5905-5) EOS % (test code = 1.9 % 713-8) BASO % (test code 0.9 % = 706-2) GRAN MAT 4.08 10*3/uL 1.99-6.95 x10^3(ANC) (test code = 1019223280) IMM GRAN x10^3 0.03 10*3/uL 0-0.06 (test code = 3022717579) LYMPH x10^3 (test 2.88 10*3/uL 1.09-3.23 code = 731-0) MONO x10^3 (test 0.64 10*3/uL 0.36-1.02 code = 742-7) EOS x10^3 (test 0.15 10*3/uL 0.06-0.53 code = 711-2) BASO x10^3 (test 0.07 10*3/uL 0.01-0.09 code = 704-7) [facility] 18:58:00 Test Item Value Reference Range Interpretation Comments APPEARANCE (test code = Clear Clear 0433364298) COLOR (test code = Yellow Yellow 1101331338) PH (test code = 4.8-8.0 3313422578) SP GRAVITY (test code = 1.003-1.030 8581954814) GLU U QUAL (test code = Normal Normal 5234431680) BLOOD (test code = Negative Negative 2871817866) KETONES (test code = Negative Negative 6951964670) PROTEIN (test code = Negative Negative 2887-8) UROBILIN (test code = Normal Normal 6539878061) BILIRUBIN (test code = Negative Negative 2863474772) NITRITE (test code = Negative Negative 3454291031) LEUK JARRET (test code = Negative Negative 8789519708) RBC/HPF (test code = See_Comment [Autom ated message] 5441660181) The system Vayable generated this result transmitted ref erence range: 0 - 3 HP F. The reference range was not used to int erpret this result as normal/abnormal . WBC/HPF (test code = See_Comment [Autom ated message] 2406982007) The system Vayable generated this result transmitted ref erence range: 0 - 5 HP F. The reference range was not used to int erpret this result as normal/abnormal . BACTERIA (test code = Negative Negative 7694631737) MUCOUS (test code = Slight Negative LPF A 0889701350) SQ EPITH (test code = HPF 6389837735) Lab Interpretation (test Abnormal code = 26248-8) [facility] (94955)2019-09-17 18:42:00 Test Item Value Reference Range Interpretation Comments NA (test code = 141 mmol/L 135-145 8877610841) K (test code = 4.3 mmol/L 3.5-5 2863498063) CL (test code = 105 mmol/L 98-108 8066456245) CO2 TOTAL (test code = 25 mmol/L 23-31 7660489992) AGAP (test code = 2-16 6265319765) BUN (test code = 8 mg/dL 7-23 5214670364) GLUCOSE (test code = 100 mg/dL 70-110 7912021820) CREATININE (test code 0.88 mg/dL 0.6-1.25 = 3363698083) TOTAL BILI (test code 0.3 mg/dL 0.1-1.1 = 1739071635) CALCIUM (test code = 9.6 mg/dL 8.6-10.6 6390786935) T PROTEIN (test code = 7.4 g/dL 6.3-8.2 4002291509) ALBUMIN (test code = 4.8 g/dL 3.5-5 7785959270) ALK PHOS (test code = 75 U/L 34-122 5479056970) ALTv (test code = 28 U/L 5-50 1742-6) AST(SGOT) (test code = 30 U/L 13-40 6539335553) eGFR Calculation mL/min/1.73m2 (Non-) (test code = 1259503776) eGFR Calculation mL/min/1.73m2 () (test code = 4809267825) YENNY (test code = YENNY) Association of [...] or urine or abnormalities in imaging tests). [facility] WITH [id number] 18:05:00 Test Item Value Reference Range Interpretation Comments WBC (test code = See_Comment [Automated message] 6690-2) The system Vayable generated this result transmitted ref erence range: 4.20 - 1 0.70 10*3/?L. The re ference range was not u sed to interpret this result as normal/abnor mal. RBC (test code = See_Comment [Automated message] 789-8) The system Vayable generated this result transmitted ref erence range: [...] RDW-SD (test code 43.5 fL 38.5-51.6 = 22635-2) RDW-CV (test code 12.9 % 12.1-15.4 = 788-0) PLT (test code = See_Comment [Automated message] 777-3) The system Vayable generated this result transmitted ref erence range: 150 - 32 8 10*3/?L. The re ference range was not u sed to interpret this result as normal/abnor mal. MPV (test code = 10.2 fL 9.8-13 59172-3) NRBC/100 WBC (test See_Comment [Automat ed message] code = 6255891971) The syste m which generated this result transmitted ref erence range: 0.0 - 10 .0 /100 WBCs. The refer ence range was not u sed to interpret this result as normal/abnor mal. NRBC x10^3 (test <0.01 See_Comment [Automated message] code = 6781168989) The syste m which generated this result transmitted ref erence range: 10*3/?L. The reference range was not used to interpr et this result as normal/abnormal . GRAN MAT (NEUT) % 51.6 % (test code = 770-8) IMM GRAN % (test 0.30 % code = 8980102968) LYMPH % (test code 37.6 % = 736-9) MONO % (test code 8.3 % = 5905-5) EOS % (test code = 1.3 % 713-8) BASO % (test code 0.9 % = 706-2) GRAN MAT 3.29 10*3/uL 1.99-6.95 x10^3(ANC) (test code = 5021643375) IMM GRAN x10^3 <0.03 0-0.06 (test code = 1106661255) LYMPH x10^3 (test 2.40 10*3/uL 1.09-3.23 code = 731-0) MONO x10^3 (test 0.53 10*3/uL 0.36-1.02 code = 742-7) EOS x10^3 (test 0.08 10*3/uL 0.06-0.53 code = 711-2) BASO x10^3 (test 0.06 10*3/uL 0.01-0.09 code = 704-7) [facility]"
--- NOTE | 2022-01-02 07:47 | ER ---
Nurse's Notes [facility] Name: Robbie Cano Age: 46 yrs Sex: Male : 1975 Arrival Date: 01/02/2022 Time: 06:42 Bed External Waiting Private MD: Diagnosis: Unilateral inguinal hernia, without obstruction or gangrene, not specified as recurrent-Incarcerated Presentation: 01/02 06:53 Chief complaint: Patient states: I am having bad left sided groin pain. pt was dx with as6 left inguinal hernia yesterday. Coronavirus screen: At this time, the client does not indicate any symptoms associated with coronavirus-19. Ebola Screen: No symptoms or risks identified at this time. Initial Sepsis Screen: Does the patient meet any 2 criteria? No. Patient's initial sepsis screen is negative. Does the patient have a suspected source of infection? No. Patient's initial sepsis screen is negative. Risk Assessment: Do you want to hurt yourself or someone else? Patient reports no desire to harm self or others. Onset of symptoms was January 01, 2022. 06:53 Method Of Arrival: Ambulatory as6 06:53 Acuity: RAMÍREZ 3 as6 Triage Assessment: 06:56 General: Appears uncomfortable, Behavior is calm, cooperative. Pain: Complains of pain as6 in left inguinal area. Historical: - Allergies: 06:55 NKDA; as6 - Home Meds: 06:55 None [Active]; as6 - PMHx: 06:55 hernia; as6 - Immunization history:: Client reports receiving the 2nd dose of the Covid vaccine. - Social history:: Smoking status: Patient denies any tobacco usage or history of. - Family history:: not pertinent. - Hospitalizations: : No recent hospitalization is reported. Vital Signs: 06:53 BP 139 / 92; Pulse 57; Resp 18 S; Temp 97.7(O); Pulse Ox 100% on R/A; Weight 108.86 kg as6 (R); Height 6 ft. 5 in. (195.58 cm) (R); Pain 9/10; 06:53 Body Mass Index 28.46 (108.86 kg, 195.58 cm) as6 ED Course: 06:42 Patient arrived in ED. kz 06:55 Triage completed. as6 06:57 Arm band placed on. as6 07:17 Mino Muhammad MD is Attending Physician. rn 07:45 Eliel Corbett MD is Hospitalizing Provider. rn 08:10 Protime (+inr) Sent. mb7 08:10 Ptt, Activated Sent. mb7 08:10 Basic Metabolic Panel Sent. mb7 08:10 CBC with Diff Sent. mb7 08:10 Inserted saline lock: 20 gauge in right antecubital area, using aseptic technique. mb7 Blood collected. Administered Medications: No medications were administered Outcome: 07:46 Decision to Hospitalize by Provider. rn 11:14 Patient left the ED. iw Signatures: Isis Long RN SUPA iw Mino Muhammad MD MD rn Slawson, Ashby, RN RN as6 Allegra Negrete mb7 Gita Espitia Corrections: (The following items were deleted from the chart) 06:56 06:55 PMHx: heat stroke; as6 as6 06:56 06:55 PSHx: hernia repair x 2; as6 as6
--- NOTE | 2022-01-02 07:47 | EDPHYS ---
Physician Documentation [facility] Name: Robbie Cano Age: 46 yrs Sex: Male : 1975 Arrival Date: 01/02/2022 Time: 06:42 Bed External Waiting Private MD: ED Physician Mino Muhammad HPI: 01/02 07:41 This 46 yrs old Male presents to ER via Ambulatory with complaints of Groin Pain. rn 07:41 The patient presents with abdominal pain in the left lower quadrant. Onset: The rn symptoms/episode began/occurred yesterday. The symptoms do not radiate. Associated signs and symptoms: Pertinent negatives: blood in stools, constipation, fever, hematuria. The symptoms are described as constant, stabbing. Modifying factors: The symptoms are alleviated by nothing, the symptoms are aggravated by touching the area. Severity of pain: At its worst the pain was moderate in the emergency department the pain is unchanged. The patient has experienced similar episodes in the past. The patient has been recently seen by a physician:. Pt reports + left inguinal hernia for some time, increased pain over the last few days, seen by Dr. Corbett yesterday, told to come to ER if pain worsened, which it did. Not able to push it back in. Still having bowel movement, no vomiting, no fever. Seen here a few days ago, ct showed fat-filled hernia.. Historical: - Allergies: 06:55 NKDA; as6 - Home Meds: 06:55 None [Active]; as6 - PMHx: 06:55 hernia; as6 - Immunization history:: Client reports receiving the 2nd dose of the Covid vaccine. - Social history:: Smoking status: Patient denies any tobacco usage or history of. - Family history:: not pertinent. - Hospitalizations: : No recent hospitalization is reported. ROS: 07:41 Constitutional: Negative for fever, chills, and weight loss, Eyes: Negative for injury, rn pain, redness, and discharge, Neck: Negative for injury, pain, and swelling, Cardiovascular: Negative for chest pain, palpitations, and edema, Respiratory: Negative for shortness of breath, cough, wheezing, and pleuritic chest pain, Abdomen/GI: + LLQ abd/inguinal pain Back: Negative for injury and pain, : Negative for injury, bleeding, discharge, and swelling, MS/Extremity: Negative for injury and deformity, Skin: Negative for injury, rash, and discoloration, Neuro: Negative for headache, weakness, numbness, tingling, and seizure. Exam: 07:41 Constitutional: This is a well developed, well nourished patient who is awake, alert, rn slowly ambulatory to room from lobby, appears in pain. Head/Face: Normocephalic, atraumatic. Cardiovascular: Regular rate and rhythm. No pulse deficits. Respiratory: Speaking full sentences, unlabored. No increased work of breathing, no retractions or nasal flaring. Abdomen/GI: soft, mild tenderness with palpable hernia left inguinal region, no skin changes Skin: Warm, dry MS/ Extremity: Pulses equal, no cyanosis. Neuro: Awake and alert, GCS 15 Vital Signs: 06:53 BP 139 / 92; Pulse 57; Resp 18 S; Temp 97.7(O); Pulse Ox 100% on R/A; Weight 108.86 kg as6 (R); Height 6 ft. 5 in. (195.58 cm) (R); Pain 9/10; 06:53 Body Mass Index 28.46 (108.86 kg, 195.58 cm) as6 MDM: 07:17 Patient medically screened. rn 07:41 Differential diagnosis: incarcerated inguinal hernia. Data reviewed: vital signs, rn nurses notes, old medical records, and as a result, I will admit patient. Counseling: I had a detailed discussion with the patient and/or guardian regarding: the historical points, exam findings, and any diagnostic results supporting the discharge/admit diagnosis, lab results, the need for further work-up and treatment in the hospital. ED course: Consulted with Dr. Corbett, will take to OR today for possible incarcerated inguinal hernia. Patient NPO since last night. States no need for CT at this time.. 01/02 07:30 Order name: CBC with Diff rn 01/02 07:30 Order name: Basic Metabolic Panel rn 01/02 07:30 Order name: Protime (+inr) rn 01/02 07:30 Order name: Ptt, Activated rn 01/02 08:22 Order name: SARS-COV-2 RT PCR (Document "Date of Onset" if Symptomatic) rn 01/02 07:30 Order name: IV Start; Complete Time: 08:10 rn 01/02 07:41 Order name: NPO rn Administered Medications: No medications were administered Disposition Summary: 01/02/22 07:46 Hospitalization Ordered Hospitalization Status: Observation rn Provider: Eliel Corbett rn Location: Telemetry/MedSurg (observation) rn Condition: Stable rn Problem: an ongoing problem rn Symptoms: have worsened rn Bed/Room Type: Standard rn Room Assignment: rn Diagnosis - Unilateral inguinal hernia, without obstruction or gangrene, not specified as rn recurrent - Incarcerated Forms: - Medication Reconciliation Form rn - SBAR form rn Signatures: Dispatcher [employer] EDMino Cohen MD MD rn Slawson, Ashby, RN RN as6 Corrections: (The following items were deleted from the chart) 06:56 06:55 PMHx: heat stroke; as6 06:56 06:55 PSHx: hernia repair x 2; as 08:09 07:31 Abdomen Pelvis W Con+CT.RAD.BRZ ordered. EDMS EDMS
[2022-01-02 08:18] LABS: Absolute Lymphocytes (CBC) 1.9 K/uL (0.7-4.9); Hematocrit 42.8 % (39.6-49.0); MPV 7.9 fL (7.6-11.3); RBC Red Blood Cell Count 4.67 M/uL (4.33-5.43)
[2022-01-02 08:23] LABS: Protime INR 0.96
[2022-01-02 08:30] LABS: Potassium 3.8 mmol/L (3.5-5.1)
[2022-01-02] MEDS ORDERED: Ringers Lactate 1,000 ML IV ONE ×2 (08:46→10:50)
--- NOTE | 2022-01-02 09:00 | P.HP ---
Date of Service: 01/02/22 PC: This 46-year-old male returns to the emergency room with severe left inguinal pain. HPC: Patient presented to the emergency room last Friday. Was found to have a left inguinal hernia and a fat filled right. Bowel was able to be reduced at that time. I saw him yesterday in the office. We were trying to schedule his surgery for next week. I told him that should he have any questions or problems to go to the emergency room or contact me. Last night he had sudden onset again of his pain. His hernia slipped once again into the left inguinal canal and he was unable to push it back right away. He came to the emergency room. Apparently the hernia was reduced but having some significant pain. PSHx: Previous umbilical hernia repair PMHx: Negative Social Hx: Active male, plays softball, however has been limited due to left groin pain. Sys R: No cough, wheeze, shortness of breath. No chest pain or palpitations. Denies any urinary complaints O/E: Awake alert vital signs are stable HEENT: Nonicteric Chest: Air entry entry equal bilaterally Abd: Soft nontender, has tenderness in the left inguinal area, but hernia is reduced at this time. Also has a small cough impulse with bulge on the right side. [place]: Intact Data: CT scan on prior admission demonstrated left inguinal hernia and a fat filled right Impression: Bilateral inguinal hernias Plan: I will taken the operating room for laparoscopic reduction and repair of his incarcerated hernia. We will also repair of the right side as well. The risks of this procedure have been discussed. The possibility of bleeding, infection, injury to bowel blood vessels and surrounding structures was explained. The possibility of recurrence, chronic pain, and need for further surgeries and procedures was discussed. An open procedure and a different method of repair was outlined. He understands and wants us to proceed.
[2022-01-02] MEDS ORDERED: propofoL 200 MG/20 ML VIAL IV ONE (09:02)
[2022-01-02] MEDS ORDERED: ROCURONIUM 50 MG/5 ML VIAL IV ONE ×2 (09:02→10:14)
[2022-01-02] MEDS ORDERED: FENTANYL CITR 250 MCG/5 ML ONE (09:03)
[2022-01-02] MEDS ORDERED: LIDOCAINE 2% MPF 5 ML VIAL ONE (09:03)
[2022-01-02] MEDS ORDERED: GLYCOPYRROLATE 0.2 MG/ML SYR ONE (09:04)
[2022-01-02] MEDS ORDERED: ONDANSETRON 4 MG/2 ML VIAL ONE ×2 (09:04→11:25)
[2022-01-02] MEDS ORDERED: NEOSTIGMINE 1 MG/ML -10 ML VIAL ONE (09:04)
[2022-01-02] MEDS ORDERED: MIDAZOLAM HCL 2 MG/2 ML INJ ONE (09:04)
[2022-01-02] MEDS ORDERED: CEFAZOLIN SODIUM 1 GM/VIAL ONE (09:12)
[2022-01-02] MEDS ORDERED: EPHEDRINE SULF 50 MG/ML VIAL ONE (10:12)
[2022-01-02] MEDS ORDERED: KETOROLAC 30 MG/ML INJ ONE (11:25)
--- NOTE | 2022-01-02 11:27 | P.OP ---
Preoperative diagnosis: Incarcerated left, and right inguinal hernia Postoperative diagnosis: Left and right inguinal hernia Primary procedure: Laparoscopic repair of left and right inguinal hernias Secondary procedure: Reduction of incarcerated left inguinal hernia Estimated blood loss: Less than 10 cc Operative Technique: The patient brought the operating room placed supine on the table. After the induction of adequate general endotracheal anesthesia a Jackman catheter was placed. The abdomen and perineum was then prepped with a Betadine solution, and draped in usual aseptic manner. A subumbilical incision was made. This was brought down through the skin and subcutaneous tissue. The fascia over the rectus muscle was identified. It was opened using 11 blade. The Hortensia retractor was now used to elevate the anterior leaf of the fascia. The balloon dissector was passed down towards the pubic symphysis and inflated. The structural balloon was now left in place. With the patient placed in marked Trendelenburg were able to pressurize the preperitoneal space. We could see that the dissection came down quite nice on the right side. The peritoneum came down and went through the inguinal ring indicating a indirect hernia on the right side. The hernia sac was dissected off the cord as well as a suture lipoma of the cord as well. This area having been cleaned off quite nicely attention was turned towards the left side. The patient has had a previous umbilical hernia repair. The mesh had fixed to the peritoneum quite nicely to the anterior abdominal wall, but made the dissection of the incarcerated hernia on the left a little more difficult. Applying gentle pressure were able to reduce it back into the peritoneal cavity. The hernia sac was identified. It was dissected off of the spermatic cord well back into the peritoneal cavity. During the dissection the epigastric vessel came down off the anterior abdominal wall. The mesh however wanted to lie with the artery behind it. The piece of left medium mesh was now introduced into the preperitoneal space. It was fixed to Felipe's ligament. We then rolled it out laterally to ensure we had adequate coverage of our hernial orifice ease potential spaces. The inferior edge was then dissected well underneath the peritoneum. This was now left in place as we turned our attention to the right side. A piece of right medium mesh was now introduced into the peritoneal cavity. It was fixed once again to Felipe's ligament and out laterally. At this point we were able to change to a 5 mm camera and visualize a fixation of her meshes on both the left and right side. By taking the patient out of Trendelenburg we were able to ensure that the hernia sac and the peritoneum rolled up on the inferior edge of the mesh and did not go under. This was verified on both sides. The preperitoneal space was now deflated. At this point attention was turned towards the umbilicus. [It is interesting that we also did place a Veress needle trocar to ensure that we could decompress a pneumoperitoneum that developed as we dissected and opened slightly the cord on the right side. The Veress needle was removed. The fascial defect at the umbilicus was closed using 2 interrupted sutures of absorbable material. The sandrine were applied to the skin. Once again these trocar sites were infiltrated with 0.25% Marcaine. At the end of the procedure sterile dressings were applied. A scrotal support was placed on the patient after having removed the Jackman catheter. Complications: None Transferred to: Recovery Room Condition: Good
[2022-01-02 11:42] VITALS: BMI 28.4
[2022-01-02 13:20] VITALS: BP 134/69; O2SAT 100
[2022-01-02 14:39] VITALS: TEMP 97
== END 2022-01-02 14:39 | disposition home or self-care (01) ==
LOC: ER 06:41 → ERHOLD 08:24
PROVIDERS: ADMIT Surgery; ATTEND Surgery
PROC: 0YUA4JZ Supplement Bilateral Inguinal Region with Synthetic Substitute, Percutaneous Endoscopic Approach (ICD-10-PCS; principal; 2022-01-02 09:00)
DX: K40.00 Bilateral inguinal hernia, with obstruction, without gangrene, not specified as recurrent (principal); Z20.822 Contact with and (suspected) exposure to COVID-19
CPT/HCPCS: 36415; 80048; 85025; 85610; 85730; 99283; G0378; J0690; J2250; J2405; J2704; J2710; J3010; J7120; U0003